=== PATIENT | male | born 1975 | race Caucasian/White ===

== ENCOUNTER 2017-06-18 22:53 | Observation (INO) ==
[2017-06-18] MEDS ORDERED: Ipratropium/Albuterol Neb 3 ML IH ONE (23:02)
[2017-06-18] MEDS ORDERED: methylPREDNISolone 125 MG/2 ML VIAL IM ONE (23:02)
--- NOTE | 2017-06-18 23:30 | Emergency Department Note ---
Disposition Clinical Impression: Asthma with exacerbation Qualifiers: Asthma severity: moderate Asthma persistence: unspecified Qualified Code(s): J45.901 - Unspecified asthma with (acute) exacerbation Disposition: Admitted As Inpatient Condition: Undetermined Time of Disposition: 00:00 SOB HPI - General Chief Complaint: ED Shortness of Breath/Dyspnea Stated Complaint: Asthma Time Seen by Provider: 06/18/17 23:00 Source: patient, family Mode of arrival: private vehicle Limitations: no limitations Nursing Notes Reviewed: Yes Vital Signs Reviewed: Yes - History of Present Illness Pt Subjective Complaint: shortness of breath, cough Onset (ago): week(s) (2) Context: recent illness Severity: moderate Consistency/Duration: constant Improves with: nothing Worsens with: coughing Known history of: asthma Associated symptoms: Reports: cough, wheezing. Denies: chest pain, pain with inspiration, fever, sputum production, orthopnea, lower extremity pain, polyuria , polydipsia, parasthesias, palpitations, hemoptysis, diaphoresis, nausea/ vomiting, syncope, abdominal pain, rash, sense of impending doom, other Treatment prior to arrival: none (was seen by PCP on Tuesday for same. States that he was given an inhaler that had albuterol and a steroid in it. He's not sure of the name of it. He did not receive oral steroids.) Cough present: Yes Cough Description: Voluntary, Involuntary, Dry, Hacking, Strong Cough Frequency: Intermittent Sputum production: No Sputum Amount: None - Related Data Home oxygen amount: none Home Medications Medication Instructions Recorded Confirmed Albuterol Sulfate [Albuterol 2 puff IH Q4H PRN 04/10/17 04/10/17 Inhaler] Atorvastatin [Lipitor] 40 mg PO HS 04/10/17 04/10/17 Baclofen [Lioresal] 10 - 20 mg PO Q6-8H PRN 04/10/17 04/10/17 Escitalopram [Lexapro] 20 mg PO DAILY 04/10/17 04/10/17 Lisinopril [Zestril] 20 mg PO DAILY 04/10/17 04/10/17 Previous Rx's Medication Instructions Recorded Ondansetron ODT [Zofran ODT] 4 mg SL Q8HR PRN #12 tab.rapdis 04/10/17 Oxycodone HCl/Acetaminophen 1 each PO Q6HR PRN #8 tablet 04/10/17 [Percocet 5-325 mg Tablet] Tamsulosin [Flomax] 0.4 mg PO DAILY #3 cap.er.24h 04/10/17 Ondansetron [Zofran] 4 mg PO Q6HR PRN #15 tablet 05/02/17 Oxycodone HCl/Acetaminophen 1 each PO Q6H PRN #10 tablet 05/02/17 [Percocet 5-325 mg Tablet] Tamsulosin [Flomax] 0.4 mg PO DAILY #3 cap.er.24h 05/02/17 Allergies Allergy/AdvReac Type Severity Reaction Status Date / Time hydrocodone [From Lortab] Allergy Hallucinati Verified 06/18/17 22:55 ng All systems ED: reviewed and negative except as stated. Review of Systems: As Per HPI Constitutional: Denies: fever, chills, weakness Eyes: Denies: eye pain, eye discharge, vision change ENT ED: Denies: ear pain, throat pain, congestion, dysphagia Cardiovascular: Reports: dyspnea on exertion. Denies: chest pain, palpitations , orthopnea, edema, syncope Respiratory: Reports: cough, dyspnea, wheezes. Denies: hemoptysis, stridor, sputum production Gastrointestinal: Denies: as per HPI, abdominal pain, nausea, vomiting, diarrhea Genitourinary: Denies: urgency, dysuria, frequency, hematuria Musculoskeletal: Denies: back pain, neck pain, joint swelling, arthralgia, myalgia Integumentary: Denies: rash Neurological: Denies: headache, weakness, numbness, paresthesias, confusion, abnormal gait, vertigo Hematological/Lymphatic: Denies: easy bleeding, easy bruising, lymphadenopathy Past Medical History - Past Medical History Attestation: Yes The following information was validated with the patient. Source: patient Medical history: Reports: asthma, hyperlipidemia, hypertension, kidney stones, liver disease Surgical history: Reports: appendectomy, herniorrhaphy, other Psychiatric history: Reports: other - Social History Smoking Status: Never smoker Smokeless Tobacco Status: No Alcohol use: Reports: none Drug use: Reports: none Physical Exam - General Limitations: no limitations General appearance: alert, in no apparent distress - Head Head exam: atraumatic, normocephalic, normal inspection - Eye Eye exam: Present: normal appearance, PERRL, EOMI. Absent: scleral icterus, conjunctival injection - ENT ENT exam: normal exam, normal oropharynx, mucous membranes moist - Neck Neck exam: Present: normal inspection, full ROM, trachea midline - Chest Chest inspection: Present: normal inspection - Respiratory Respiratory exam: Present: wheezes, accessory muscle use, prolonged expiratory phase. Absent: normal lung sounds bilaterally, respiratory distress, stridor - Expanded Respiratory Exam Location: wheezes: Left, Right, Upper, Lower - Cardiovascular Cardiovascular exam: Present: regular rate, normal rhythm, normal heart sounds - Extremities Exam Extremities exam: Present: normal inspection. Absent: pedal edema - Expanded Lower Extremity Exam Gait: observed and normal - Back Exam Back exam: Present: normal inspection, full ROM - Neurological Exam Neurological exam: Present: alert, oriented X3, CN II-XII intact, normal gait - Psychiatric Psychiatric exam: Present: normal affect, normal mood - Skin Skin exam: Present: warm, dry, intact, normal color Course Course Narrative: Patient presents for evaluation of cough, wheezing and shortness of breath for almost 2 weeks. He denies pain except when he coughs, it irritates his throat. He denies chest pain, peripheral edema, dizziness lightheadedness, vertigo, syncope, hemoptysis, fever, chills, nausea, vomiting, joint pain, rashes, recent exposures or travel. He has no history of coronary artery disease, PE or DVT, CHF or recurrent pneumonia. He does not smoke. He states that his asthma is usually very well controlled with just albuterol as needed, except once a year when the weather changes. He did see his primary care provider, Dr. Hoffmann on Tuesday. He states he was given an inhaler that had a steroid in it. He states that it was albuterol plus some type of steroid. He did not receive oral steroids or antibiotics. He is afebrile, well-appearing and able to speak in complete sentences without stopping to take a deep breath. He has inspiratory and expiratory wheezes in the upper lobes bilaterally. No rhonchi or rales are heard. DuoNeb and x-ray have been ordered along with IM Solu- Medrol. X-ray was read by the radiologist as no acute abnormality. Oxygen saturation is 94% on room air. Given the patient's comorbidities duration of symptoms and that he did not respond to the inhaled steroids, given by his PCP, I am concerned for a possible infectious process. Patient has been seen by Dr. Owens. He does not feel that antibiotics are indicated at this time. Patient's sats have decreased. Chest x-ray does not show pneumonia. Ambulatory vitals are suboptimal. Will admit - Reevaluation(s) Reevaluation #1: Wheezing is better. However, patient sats have decreased instead of increased. He continues to have a harsh cough. At rest, his sats dropped to 88% on room air. While ambulating he was up to only 93% and was tachycardic at 106. Time: 01:31 Vital Signs Temperature 97.8 F 06/18/17 22:55 Pulse Rate 86 06/18/17 22:55 Respiratory Rate 18 06/18/17 22:55 Blood Pressure 139/90 06/18/17 22:55 O2 Sat by Pulse Oximetry 94 06/18/17 22:55 Temperature 97.8 F 06/18/17 22:55 Pulse Rate 97 06/19/17 00:08 Respiratory Rate 18 06/19/17 00:39 Blood Pressure 139/90 06/18/17 22:55 O2 Sat by Pulse Oximetry 94 06/19/17 00:39 Oxygen Delivery Oxygen Delivery Room Air Shortness of Breath/Dyspnea - Medical Records Medical records reviewed: Yes I reviewed the patient's medical records. - Radiology Data Radiology results reviewed: Yes I reviewed the patient's radiology results. Chest X-Ray 06/18/17 23:03 IMPRESSION: 1. No acute cardiopulmonary disease. D/ / Marc Tellez MD / Marc Tellez MD Interpreting Provider: Marc Tellez MD - EKG Data EKG attestation: Yes I reviewed and interpreted this EKG. EKG shows normal: Reports: sinus rhythm Rate: Reports: normal Rhythm: Reports: NSR [place]/QRS: Reports: normal When compared to previous EKG there are: changes noted (T waves are now flat in lead three. Previously they were inverted.) Interpretation: Reports: normal EKG
[2017-06-19] MEDS ORDERED: Acetaminophen w/Codeine 120-12 mg Soln 5 ML UDC PO ONE (00:15)
[2017-06-19] MEDS ORDERED: Ipratropium/Albuterol Neb 3 ML IH ONE (00:15)
--- NOTE | 2017-06-19 01:32 | Emergency Department Note ---
Disposition Clinical Impression: Asthma with exacerbation Qualifiers: Asthma severity: moderate Asthma persistence: unspecified Qualified Code(s): J45.901 - Unspecified asthma with (acute) exacerbation Disposition: Admitted As Inpatient Condition: Undetermined Referrals: Kory De Oliveira DO [Primary Care Provider] - General Adult HPI - General Chief complaint: ED Shortness of Breath/Dyspnea Stated complaint: Asthma Time Seen by Provider: 06/18/17 23:00 Source: patient, family Mode of arrival: private vehicle Limitations: no limitations - History of Present Illness Pain Scale: 0 - Related Data Home Medications Medication Instructions Recorded Confirmed Albuterol Sulfate [Albuterol 2 puff IH Q4H PRN 04/10/17 04/10/17 Inhaler] Atorvastatin [Lipitor] 40 mg PO HS 04/10/17 04/10/17 Baclofen [Lioresal] 10 - 20 mg PO Q6-8H PRN 04/10/17 04/10/17 Escitalopram [Lexapro] 20 mg PO DAILY 04/10/17 04/10/17 Lisinopril [Zestril] 20 mg PO DAILY 04/10/17 04/10/17 Previous Rx's Medication Instructions Recorded Ondansetron ODT [Zofran ODT] 4 mg SL Q8HR PRN #12 tab.rapdis 04/10/17 Oxycodone HCl/Acetaminophen 1 each PO Q6HR PRN #8 tablet 04/10/17 [Percocet 5-325 mg Tablet] Tamsulosin [Flomax] 0.4 mg PO DAILY #3 cap.er.24h 04/10/17 Ondansetron [Zofran] 4 mg PO Q6HR PRN #15 tablet 05/02/17 Oxycodone HCl/Acetaminophen 1 each PO Q6H PRN #10 tablet 05/02/17 [Percocet 5-325 mg Tablet] Tamsulosin [Flomax] 0.4 mg PO DAILY #3 cap.er.24h 05/02/17 Allergies Allergy/AdvReac Type Severity Reaction Status Date / Time hydrocodone [From Lortab] Allergy Hallucinati Verified 06/18/17 22:55 ng Constitutional: Denies: fever, chills, weakness Eyes: Denies: eye pain, eye discharge, vision change ENT ED: Denies: ear pain, throat pain, congestion, dysphagia Cardiovascular: Reports: dyspnea on exertion. Denies: chest pain, palpitations , orthopnea, edema, syncope Respiratory: Reports: cough, dyspnea, wheezes. Denies: hemoptysis, stridor, sputum production Gastrointestinal: Denies: as per HPI, abdominal pain, nausea, vomiting, diarrhea Genitourinary: Denies: urgency, dysuria, frequency, hematuria Musculoskeletal: Denies: back pain, neck pain, joint swelling, arthralgia, myalgia Integumentary: Denies: rash Neurological: Denies: headache, weakness, numbness, paresthesias, confusion, abnormal gait, vertigo Hematological/Lymphatic: Denies: easy bleeding, easy bruising, lymphadenopathy Past Medical History - Past Medical History Medical history: Reports: asthma, hyperlipidemia, hypertension, kidney stones, liver disease Surgical history: Reports: appendectomy, herniorrhaphy, other Psychiatric history: Reports: other - Social History Smoking Status: Never smoker Smokeless Tobacco Status: No Alcohol use: Reports: none Drug use: Reports: none Physical Exam - General Limitations: no limitations General appearance: alert, in no apparent distress Course Vital Signs Temperature 97.8 F 06/18/17 22:55 Pulse Rate 86 06/18/17 22:55 Respiratory Rate 18 06/18/17 22:55 Blood Pressure 139/90 06/18/17 22:55 O2 Sat by Pulse Oximetry 94 06/18/17 22:55 Temperature 97.8 F 06/18/17 22:55 Pulse Rate 97 06/19/17 00:08 Respiratory Rate 18 06/19/17 00:39 Blood Pressure 139/90 06/18/17 22:55 O2 Sat by Pulse Oximetry 94 06/19/17 00:39 Oxygen Delivery Oxygen Delivery Room Air Attestation Statement - Attestation Attestation: For this encounter, I have reviewed the SENIOR GAME ADVISOR or PA documentation, treatment plan, and medical decision making; and I have had face to face time with this patient. [id number] time provided Patient to be admitted by the mid-level provider for wheezing and dyspnea. He does have ambulatory hypoxia. Appears in no acute distress on my exam
[2017-06-19 02:29] LABS: Basophils % 0.4 %; Eosinophils # 0.6 K/mcL (0.0-0.6); Hematocrit 43.4 % (37.5-50.1); Hemoglobin 15.2 g/dL (12.9-16.9); Immature Granulocytes % 0.4 % (0-4); Lymphocytes # 1.2 K/mcL (0.6-4.6); Lymphocytes % 14.1 %; Mean Corpuscular Hemoglobin 29.1 pg (28.0-33.3); Mean Corpuscular Volume 83.1 fL (83.0-100.0); Mean Platelet Volume 9.3 fL (9.4-12.4); Monocytes # 0.2 K/mcL (0.0-1.3); Monocytes % 2.4 %; Neutrophils # 6.2 K/mcL (1.6-8.9); Platelet Count 252 K/mcL (140-400); Red Blood Count 5.22 M/mcL (4.19-5.50); Red Cell Distribution Width 13.2 % (11.5-14.5); Segmented Neutrophils % 75.7 %
[2017-06-19 02:41] LABS: BUN/Creatinine Ratio 14 (6-26); Blood Urea Nitrogen 15 mg/dL (8-26); Carbon Dioxide 22 mEq/L (19-29); Chloride 107 mEq/L (98-109); Glucose 144 mg/dL (70-99); Magnesium 2.4 mg/dL (1.6-2.6); Osmolality,Calculated 291 (280-300); Potassium 3.1 mEq/L (3.5-4.5); Sodium 139 mEq/L (136-145); eGFR For African Americans > 60 (> 60); eGFR For Non-African Americans > 60 (> 60)
--- NOTE | 2017-06-19 02:44 | Internal Med History&Physical ---
Date of Encounter: 06/19/17 Time of Encounter: 02:42 Assessment and Plan (1) Asthma with exacerbation Current visit: Yes Status: Acute Mild exacerbation. Patient is comfortable at rest. Speaking in full sentences. No respiratory distress or accessory muscle use. hypoxia to early 90s. Will give the patient steroids Q4 our nebulizer treatment. No pneumonia on chest x-ray. No priorintubations. Observation admission Qualifiers: Asthma severity: moderate Asthma persistence: unspecified Qualified Code( s): J45.901 - Unspecified asthma with (acute) exacerbation Internal Medicine - H&P: HPI Chief complaint: sob History of present illness: Mr. Story is a 42 year old male with a history of asthma presents emergency room with a little shortness of breath. Patient mentioned that for the past 2 weeks he has been noticing increased shortness of breath compared to baseline and chest wheezing. He has been noticing that symptoms would worsen only at nighttime. However the past couple of days patient has been using his inhaler more frequently than usual. He has seen his primary care physician on Tuesday 3 days ago and was given an albuterol inhaler and albuterol solution was refilled. He has not received any steroids. Patient speaking in full sentences during my interview. He denies any fevers or chills. no sputum Production. No chest pain. No prior history of DVT or pulmonary embolism. Past Med Surg Social Fam HX - Past Medical History Medical history: asthma, hyperlipidemia, hypertension, kidney stones, liver disease Psychiatric history: other - Past Surgical History Surgical History: appendectomy, herniorrhaphy, other - Social History Smoking Status: Never smoker Smokeless Tobacco Status: No Alcohol use: none Drug use: none Internal Medicine - H&P: Meds Albuterol Sulfate [Albuterol Inhaler] 2 puff IH Q4H PRN 04/10/17 [History] Atorvastatin [Lipitor] 40 mg PO HS 04/10/17 [History] Baclofen [Lioresal] 10 - 20 mg PO Q6-8H PRN 04/10/17 [History] Escitalopram [Lexapro] 20 mg PO DAILY 04/10/17 [History] Lisinopril [Zestril] 20 mg PO DAILY 04/10/17 [History] Ondansetron ODT [Zofran ODT] 4 mg SL Q8HR PRN #12 tab.rapdis 09/03/17 [Rx] Oxycodone HCl/Acetaminophen [Percocet 5-325 mg Tablet] 1 each PO Q6HR PRN #8 tablet 04/10/17 [Rx] Tamsulosin [Flomax] 0.4 mg PO DAILY #3 cap.er.24h 04/10/17 [Rx] Ondansetron [Zofran] 4 mg PO Q6HR PRN #15 tablet 05/02/17 [Rx] Oxycodone HCl/Acetaminophen [Percocet 5-325 mg Tablet] 1 each PO Q6H PRN #10 tablet 05/02/17 [Rx] Tamsulosin [Flomax] 0.4 mg PO DAILY #3 cap.er.24h 05/02/17 [Rx] 3 Allergy/AdvReac Type Severity Reaction Status Date / Time hydrocodone [From Lortab] Allergy Hallucinati Verified 06/18/17 22:55 ng All Systems PM: A 10-system review of systems was performed and is negative for pertinent findings except as documented above in the HPI. Review of systems: 10 point review of systems is negative except for HPI - Constitutional Vitals: Temp Pulse Resp BP Pulse Ox 97.8 F 104 14 140/75 93 06/18/17 22:55 06/19/17 02:05 06/19/17 02:40 06/19/17 02:40 06/19/17 02:05 Exam: Gen.: patient is alert oriented times 3 cardiac: normal S1 S2 no additional sounds or murmurs chest: diminished air entry. expiratory wheeze abdomen soft nontender nondistended normal bowel sounds lower extremity no swelling. Neuro: no new focal deficits Internal Med - H&P Results - Labs CBC & Chem 7: 06/19/17 02:22 Labs: Short CBC 06/19/17 Range/Units 02:22 WBC 8.2 (4.3-11.1) K/mcL Hgb 15.2 (12.9-16.9) g/dL Hct 43.4 (37.5-50.1) % Plt Count 252 (140-400) K/mcL Neutrophils # 6.2 (1.6-8.9) K/mcL
[2017-06-19] MEDS: Ipratropium/Albuterol Neb 3 ML IH SCH ×4 (03:41→15:19)
[2017-06-19] MEDS: *HR* Heparin 5,000 UNIT/ML VIAL SQ SCH ×3 (05:46→21:27)
[2017-06-19] MEDS: MethylPREDNISolone 40 MG/ML VIAL IVP SCH ×3 (06:21→17:01)
[2017-06-19] MEDS: Famotidine 20 MG TABLET PO SCH ×2 (07:44→21:28)
[2017-06-19] MEDS ORDERED: Albuterol 2.5 MG/3 ML NEBULIZER IH PRN (07:50)
[2017-06-19] MEDS ORDERED: *HR* Labetalol 20 MG/4 ML SYRINGE IVP ONE ×2 (13:20→16:27)
[2017-06-19] MEDS ORDERED: hydrOXYzine pamoate 25 MG CAPSULE PO ONE (14:33)
--- NOTE | 2017-06-19 14:43 | Internal Med Progress Note ---
Date of Encounter: 06/19/17 Time of Encounter: 08:30 - Assessment and plan (1) Asthma with exacerbation Current Visit: Yes Status: Acute Assessment and plan: Pt with exacerbatioin of asthma, has been requiring more frequent use of his inhalers and has been seen by PCP during the week and placed on new inhaler. Pt reports history of same in the fall for the last few years. Lungs are diminished, but clear in the posterior bases. Faint expiratory wheezing heard in anterior lung enriquez. Pt's sats have been low, in the low 90s in the ER. Will continue to monitor Continue nebulizer treatments Continue IV steroids Continue telemetry 02 as needed to maintain sats > 92% Qualifiers: Asthma severity: moderate Asthma persistence: unspecified Qualified Code( s): J45.901 - Unspecified asthma with (acute) exacerbation (2) Tachycardia Current Visit: Yes Status: Acute Assessment and plan: Pt with tachycardia this afternoon. Onset after nebulizer treatment. Pt was given BB IV. Will continue to monitor vitals frequently. Obtain EKG. (3) DVT prophylaxis Current Visit: Yes Status: Acute Assessment and plan: Heparin SQ - Time Spent With Patient less than 15 minutes - Subjective Interval history: Patient was seen and assessed at bedside at 8:30 AM. Female visitor at bedside. The patient presented to the emergency room for evaluation of cough wheezing, shortness of breath increasing over last 2 weeks. He denies any chest pain, dizziness, lightheadedness, abdominal pain, headache, fever, chills , nausea, vomiting. Patient reports that every year at this time, he has exacerbation of his asthma. We discussed that perhaps he could speak with primary care provider about ramping up his nebulizers and/or taking steroids to get through this time a year without hospitalization or complications. - Constitutional Vitals: Temp Pulse Resp BP Pulse Ox 97.8 F 117 16 144/74 94 06/19/17 11:30 06/19/17 12:35 06/19/17 11:30 06/19/17 11:30 06/19/17 12:35 General appearance: Present: cooperative, A&O X 3, pleasant, answers questions appropriately - Head Head exam: Present: atraumatic, normal inspection, normocephalic - Eye Eye exam: Present: normal appearance, conjuntiva pink, sclera anicteric - Neck Neck exam general surgery: Present: normal inspection, supple, trachea midline. Absent: lymphadenopathy, tenderness - Respiratory Respiratory exam: Present: decreased breath sounds, CTAB, wheezes. Absent: accessory muscle use, chest wall tenderness, rales, respiratory distress, rhonchi - Cardiovascular Cardiovascular exam: Present: RRR, +S1, +S2. Absent: diastolic murmur, gallop, rubs, systolic murmur - GI/Abdominal GI/Abdominal exam: Present: normal bowel sounds, soft. Absent: distended, hepatomegaly, tenderness - Extremities Exam Extremities exam: Present: normal capillary refill, normal inspection, warm, radial pulses palpable and symmetrical. Absent: calf tenderness, cyanotic, pedal edema, tenderness - Neurological Exam Neurological exam: Present: alert, oriented X3, no focal deficits. Absent: facial droop, speech deficit - Skin Skin exam: Present: dry, intact, normal color, warm. Absent: rash Internal Medicine: Result - Labs CBC & Chem 7: 06/19/17 02:22 06/19/17 02:22 Labs: Short CBC 06/19/17 Range/Units 02:22 WBC 8.2 (4.3-11.1) K/mcL Hgb 15.2 (12.9-16.9) g/dL Hct 43.4 (37.5-50.1) % Plt Count 252 (140-400) K/mcL Neutrophils # 6.2 (1.6-8.9) K/mcL BMP 06/19/17 02:22 Sodium 139 Potassium 3.1 L Chloride 107 Carbon Dioxide 22 BUN 15 Creatinine 1.10 Glucose 144 H Calcium 9.0 Consult Discharge Plan - Plan Referrals: Kory De Oliveira DO [Primary Care Provider] -
[2017-06-19 15:31] LABS: Amphetamine Screen,Urine Negative ng/mL (Cutoff=1000); Barbiturate Screen,Urine Negative ng/mL (Cutoff=200); Benzodiazepines Screen,Urine Negative ng/mL (Cutoff=200); Cannabinoid Screen,Urine Negative ng/mL (Cutoff = 50); Cocaine Screen,Urine Negative ng/mL (Cutoff= 300); Opiate Screen,Urine Positive ng/mL (Cutoff=300); Phencyclidine Screen,Urine Negative ng/mL (Cutoff=25)
[2017-06-19] MEDS ORDERED: 0.9 % Sodium Chloride 1,000 ML IVC SCH (17:15)
--- NOTE | 2017-06-19 18:10 | Electrocardiograph Report ---
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
[2017-06-19] MEDS: Levalbuterol Neb 1.25 MG/3 ML IH SCH (20:02)
[2017-06-20] MEDS: Levalbuterol Neb 1.25 MG/3 ML IH SCH ×5 (00:03→16:15)
[2017-06-20 05:08] LABS: Basophils % 0.1 %; Hematocrit 42.8 % (37.5-50.1); Hemoglobin 14.4 g/dL (12.9-16.9); Immature Granulocytes % 0.5 % (0-4); Lymphocytes # 0.9 K/mcL (0.6-4.6); Mean Corpuscular HGB Conc 33.6 g/dL (31.6-35.5); Mean Corpuscular Hemoglobin 28.3 pg (28.0-33.3); Mean Corpuscular Volume 84.3 fL (83.0-100.0); Mean Platelet Volume 9.7 fL (9.4-12.4); Monocytes % 6.8 %; Neutrophils # 12.6 K/mcL (1.6-8.9); Platelet Count 271 K/mcL (140-400); Red Blood Count 5.08 M/mcL (4.19-5.50); Red Cell Distribution Width 13.2 % (11.5-14.5); Segmented Neutrophils % 86.6 %
[2017-06-20 05:39] LABS: BUN/Creatinine Ratio 20 (6-26); Blood Urea Nitrogen 18 mg/dL (8-26); Calcium 8.8 mg/dL (8.6-10.8); Carbon Dioxide 21 mEq/L (19-29); Chloride 110 mEq/L (98-109); Glucose 139 mg/dL (70-99); Osmolality,Calculated 294 (280-300); Potassium 4.1 mEq/L (3.5-4.5); Sodium 140 mEq/L (136-145); eGFR For African Americans > 60 (> 60); eGFR For Non-African Americans > 60 (> 60)
[2017-06-20] MEDS: *HR* Heparin 5,000 UNIT/ML VIAL SQ SCH ×2 (05:53→14:00)
[2017-06-20] MEDS: MethylPREDNISolone 40 MG/ML VIAL IVP SCH (06:25)
[2017-06-20] MEDS: Famotidine 20 MG TABLET PO SCH (08:26)
[2017-06-20] MEDS ORDERED: Lisinopril 20 MG TABLET PO SCH (09:00)
[2017-06-20 15:06] VITALS: BP 127/73
--- NOTE | 2017-06-20 15:07 | Electrocardiograph Report ---
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
--- NOTE | 2017-06-20 15:35 | Discharge Summary ---
Date of Encounter: 06/20/17 Time of Encounter: 09:30 - Discharge Diagnosis (1) Asthma with exacerbation Priority: Primary Status: Acute Comments: Pt with exacerbatioin of asthma, has been requiring more frequent use of his inhalers and has been seen by PCP during the week and placed on new inhaler. 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 Pt reports history of same in the fall for the last few years. Lungs are diminished, but clear in the posterior bases. Faint expiratory wheezing heard in anterior lung enriquez. Pt's sats were low, in the low 90s in the ER. He is back on room air and sats were about 94-95%. Pt will continue home medications and will get a steroid taper. Qualifiers: Asthma severity: moderate Asthma persistence: unspecified Qualified Code( s): J45.901 - Unspecified asthma with (acute) exacerbation (2) Tachycardia Priority: Secondary Status: Acute Comments: Pt with tachycardia, acute, onset yesterday. Pt will be sent home on low dose of BB since it is controlling pulse well without bradycardia, Blood pressure has been well controlled. Pt will need to follow up with PCP for evaluation and monitoring. (3) DVT prophylaxis Priority: Secondary Status: Acute Comments: Heparin SQ - Discharge Medications Prescriptions: Ipratropium/Albuterol Neb [Duoneb] 3 ml IH Q6HR PRN #60 vial.neb PRN Reason: wheezing/shortness of breath GuaiFENesin ER [Mucinex] 600 mg PO BID #60 tbbp.12hr Metoprolol [Lopressor] 12.5 mg PO BID #60 tablet predniSONE [PredniSONE] 10 mg PO DAILY #41 tablet Home Medications: Albuterol Sulfate [Albuterol Inhaler] 2 puff IH Q4H PRN 04/10/17 [History] Atorvastatin [Lipitor] 80 mg PO HS 04/10/17 [History] Escitalopram [Lexapro] 20 mg PO DAILY 04/10/17 [History] Lisinopril [Zestril] 20 mg PO DAILY 04/10/17 [History] Budesonide/Formoterol 80/4.5 [Symbicort 80/4.5] 2 puff IH BID 06/19/17 [History ] Ipratropium/Albuterol Neb [Duoneb] 3 ml IH Q6HR 11/12/17 [History] Meloxicam [Mobic] 7.5 mg PO DAILY 06/19/17 [History] GuaiFENesin ER [Mucinex] 600 mg PO BID #60 tbbp.12hr 06/20/17 [Rx] Ipratropium/Albuterol Neb [Duoneb] 3 ml IH Q6HR PRN #60 vial.neb 06/20/17 [Rx] Metoprolol [Lopressor] 12.5 mg PO BID #60 tablet 06/20/17 [Rx] predniSONE [PredniSONE] 10 mg PO DAILY #41 tablet 06/20/17 [Rx] Allergies/Adverse Reactions: 3 Allergy/AdvReac Type Severity Reaction Status Date / Time hydrocodone [From Lortab] Allergy Hallucinati Verified 06/18/17 22:55 ng Procedures/tests Complete & Pending: Procedures Performed prior 72 hours Category Date Time Status ECG 12 lead ECG [ECG] Routine Y 06/19/17 16:25 Completed Date of admission: 06/19/17 02:19 Primary care physician: Kory De Oliveira DO Discharging clinician: Madeline Solorzano Anticipated date of discharge: 06/20/17 - Patient Status Disposition: Home, Self-Care Condition: Good Functional capacity at discharge: independent ambulation Overall status at discharge: patient is back to baseline - Discharge Instructions Follow Up With: Kory De Oliveira DO [Primary Care Provider] - Additional Instructions: Follow up with PCP in the next 7-10 days for a follow up visit. Return to the ER as needed for any other problems or concerns. Take your medications as directed. Return to work on Tuesday as we discussed. REsume your normal activities as tolerated, try to rest. - Diet and Activity Activity: increase activity as tolerated Diet: advance to your usual diet Interval History: Please see assessment and plan for hospital course. Hospital course: Mr. Story is a 42 year old male - Time Spent with Patient Total time spent providing and/or coordinating discharge services: Less than 30 minutes - Constitutional Vitals: Temp Pulse Resp BP Pulse Ox 97.9 F 87 18 127/73 96 06/20/17 15:06 06/20/17 15:06 06/20/17 15:06 06/20/17 15:06/20/17 15:06 General appearance: Present: cooperative, A&O X 3, pleasant, no acute distress, answers questions appropriately - Head Head exam: Present: atraumatic, normal inspection, normocephalic - Eye Eye exam: Present: normal appearance, conjuntiva pink, sclera anicteric - Neck Neck exam general surgery: Present: supple, trachea midline. Absent: lymphadenopathy - Respiratory Respiratory exam: Present: CTAB. Absent: accessory muscle use, rales, rhonchi, wheezes - Cardiovascular Cardiovascular exam: Present: RRR, +S1, +S2. Absent: bradycardia, diastolic murmur, gallop, rubs, systolic murmur, tachycardia - GI/Abdominal GI/Abdominal exam: Present: soft, no peritoneal signs. Absent: distended, hepatomegaly, tenderness - Extremities Exam Extremities exam: Present: normal capillary refill, warm, radial pulses palpable and symmetrical. Absent: calf tenderness, cyanotic, pedal edema, tenderness - Neurological Exam Neurological exam: Present: alert, oriented X3, no focal deficits. Absent: facial droop, speech deficit - Skin Skin exam: Present: dry, intact, normal color, warm. Absent: rash
== END 2017-06-20 18:20 | disposition home or self-care (01) ==
LOC: EMEROO 22:53 → 3BNU 22:53
PROVIDERS: ADMIT Hospitalist; ATTEND Registered Nurse

== ENCOUNTER 2019-04-06 21:42 | Observation (INO) ==
[2019-04-06 22:00] LABS: Bilirubin,Urine Negative (Negative); Blood,Urine Large (Negative); Clarity,Urine Clear (Clear); Color,Urine Yellow (Yellow); Glucose,Urine (UA) Normal (Normal); Ketones,Urine Trace mg/dL (Negative); Leukocyte Esterase,Urine Negative (Negative); Nitrite,Urine Negative (Negative); Protein,Urine Trace mg/dL (Neg-Trace); Specific Gravity,Urine 1.025 (1.010-1.025); Urobilinogen,Urine Normal (Normal)
[2019-04-06 22:02] LABS: Bacteria,Urine None Seen per hpf (None-Few); Hyaline Casts,Urine None Seen per lpf (None-Few); Squamous Epithelial Cell,Urine Moderate per lpf (None-Few); WBC,Urine 0-3 per hpf (0-3)
--- NOTE | 2019-04-06 22:07 | Emergency Department Note ---
Disposition Clinical Impression: GABRIELLE (acute kidney injury), Right ureteral stone Disposition: Admitted As Inpatient Condition: Fair Referrals: Kory De Oliveira DO [Primary Care Provider] - Forms: ED Satisfaction Letter, Work/School Release Time of Disposition: 00:20 Abdominal Pain HPI - General Chief Complaint: ED Abdominal Pain Stated Complaint: R Flank Pain Time Seen by Provider: 04/06/19 22:05 Source: patient Mode of arrival: ambulatory Limitations: no limitations Nursing Notes Reviewed: Yes Vital Signs Reviewed: Yes - History of Present Illness HPI Narrative: Patient is a 43-year-old male presenting with right flank pain. Patient with known history of nephrolithiasis requiring surgical intervention and stenting in the past. Patient is followed by urology, Dr. Castaneda. Patient had abrupt onset of right flank pain 1 hour prior to arrival with radiation down into the right groin and testicles. Patient states that he has been having no urinary symptoms, fevers or chills. Pain has been constant rated 9 out of 10. He has had associated nausea without vomiting. This feels very similar to his kidney stones in the past. States he has required surgical intervention for 4 out of the last 5 kidney stones that he has had. He did have a CT scan performed in early March showing a 5 mm stone to the right UPJ. This was nonobstructing at that time. It was noted by his urologist at that time, noted that it could start to move and cause discomfort. Pain Scale: 9 - Related Data Home Medications Medication Instructions Recorded Confirmed Albuterol Sulfate [Proventil 2 puff IH Q4H PRN 04/10/17 08/22/18 Inhaler] Atorvastatin [Lipitor] 80 mg PO HS 04/10/17 08/22/18 Ipratropium/Albuterol Neb [Duoneb] 3 ml IH Q6HR PRN 06/19/17 08/22/18 Ibuprofen [Ibu] 1 tab PO TID PRN 08/22/18 08/22/18 Naproxen [Naprosyn] 1 tab PO Q12H PRN 08/22/18 08/22/18 Sertraline [Zoloft] 1 tab PO DAILY 08/22/18 08/22/18 Losartan/HCTZ 1 tab PO DAILY 04/06/19 04/06/19 Wellbutrin 1 tab PO DAILY 04/06/19 04/06/19 amLODIPine 1 tab PO DAILY 04/06/19 04/06/19 Allergies Allergy/AdvReac Type Severity Reaction Status Date / Time hydrocodone [From Lortab] Allergy Hallucinati Verified 04/06/19 22:04 ng All systems ED: reviewed and negative except as stated. Review of Systems: As Per HPI Constitutional: Denies: fever, chills ENT ED: Denies: congestion Cardiovascular: Denies: chest pain, palpitations Respiratory: Denies: cough, dyspnea Gastrointestinal: Reports: abdominal pain, nausea. Denies: vomiting, diarrhea, hematemesis, melena, hematochezia Genitourinary: Denies: urgency, dysuria, frequency, hematuria Musculoskeletal: Reports: back pain Integumentary: Denies: rash, abrasion Neurological: Denies: headache, weakness, numbness, confusion Endocrine: Denies: fatigue Abdominal Pain PMH - Past Medical History Medical history: Reports: asthma, hyperlipidemia, hypertension, kidney stones Male Surgical History: Reports: appendectomy, herniorrhaphy, orthopedic, other Psychiatric history: Reports: no psych history - Social History Smoking status: Never smoker Alcohol use: Reports: none Drug use: Reports: none Physical Exam General: Conversant. Patient appears uncomfortable on the bed. Follow commands. Appears stated age. Neck: No JVD. Trachea midline. Neck supple. Eyes: PERRL. No scleral icterus. HENT: Normocephalic and atraumatic. Moist mucus membranes. Cardiovascular: Regular rate and rhythm. Normal S1 and S2. No murmurs appreciated. Normal capillary refill. Extremities well perfused with 2+ distal pulses bilaterally. No edema. Pulmonary: Normal and equal breath sounds bilaterally, anteriorly and posteriorly. No wheezes, rales, or rhonchi. Not in respiratory distress. Speaks in full sentences. Abdomen: Soft, nondistended, No bruits or masses. No guarding or rebound. Patient was in his palpation throughout the right CVA region extending down into the right lateral abdomen, testicular exam is generalized tenderness throughout the right testicle without posterior tenderness, no testicular swelling, erythema or crepitus. Neuro: Alert and oriented x3. No slurred speech. No focal deficits noted. Skin: No rashes noted on visualized skin. Musculoskeletal: No bony abnormalities visualized. Moves all extremities. Psych: Normal mood. Pleasant. Makes appropriate eye contact. - General Limitations: no limitations General appearance: alert Course Vital Signs Temperature 97.6 F 04/06/19 21:43 Pulse Rate 92 04/06/19 21:43 Respiratory Rate 22 04/06/19 21:43 Blood Pressure 156/99 04/06/19 21:43 O2 Sat by Pulse Oximetry 98 04/06/19 21:43 Temperature 97.6 F 04/06/19 21:59 Pulse Rate 85 04/07/19 00:04 Respiratory Rate 16 04/07/19 00:04 Blood Pressure 138/86 04/07/19 00:04 O2 Sat by Pulse Oximetry 97 04/07/19 00:04 Oxygen Delivery Oxygen Delivery Room Air Abdominal Pain - MDM Narrative Medical decision making narrative: Patient is a 43-year-old male who is presenting with right flank pain. Patient with known history of nephrolithiasis with last CT the abdomen and pelvis performed in early March showing a 5 mm nonobstructing stone at the UPJ. Patient does appear uncomfortable on examination otherwise vital signs within normal limits. Patient is afebrile. X-ray work was performed and reviewed including CBC, BMP and urinalysis. CBC shows no leukocytosis. BMP does show s light acute kidney injury with a serum creatinine 1.34 with baseline of normal. Urinalysis shows hematuria without sign of infection. CT of the abdomen and pelvis was performed which does show 5 mm obstructing stone at the mid ureter with moderate hydronephrosis. Patient was given a liter of fluids, fentanyl secondary to hydrocodone allergy, Toradol and Zofran. On reevaluation, patient states that his pain had decreased however at this point in time is coming back. Patient continues to feel somewhat uncomfortable. I did have a discussion with the patient regarding disposition, shared decision making with the patient as well as his in the room regarding admission versus discharge with outpatient follow-up. As the patient has had multiple kidney stones in the past requiring surgical intervention and stenting, patient would prefer to be admitted further pain control as well as inpatient treatment. I do believe that this is appropriate given patient's pain as well as slight elevation of serum creatinine. Patient will need further pain control here in the hospital as well as urological consult. - Medical Records Medical records reviewed: Yes I reviewed the patient's medical records. - Lab Data Lab results reviewed: Yes I reviewed the patient's lab results. Result diagrams: 04/06/19 21:57 04/06/19 21:57 Lab Results 04/06/19 04/06/19 04/06/19 Range/Units 21:50 21:57 21:57 WBC 10.7 (4.3-11.1) K/mcL RBC 5.53 H (4.19-5.50) M/mcL Hgb 15.3 (12.9-16.9) g/dL Hct 44.9 (37.5-50.1) % MCV 81.2 L (83.0-100.0) fL MCH 27.7 L (28.0-33.3) pg MCHC 34.1 (31.6-35.5) g/dL RDW 12.6 (11.5-14.5) % Plt Count 317 (140-400) K/mcL MPV 9.3 L (9.4-12.4) fL Immature Gran % 0.4 (0-4) % Seg Neutrophils % 76.4 % Lymphocytes % 13.8 % Monocytes % 8.1 % Eosinophils % 1.0 % Basophils % 0.3 % Neutrophils # 8.2 (1.6-8.9) K/mcL Lymphocytes # 1.5 (0.6-4.6) K/mcL Monocytes # 0.9 (0.0-1.3) K/mcL Eosinophils # 0.1 (0.0-0.6) K/mcL Basophils # 0.0 (0.0-0.2) K/mcL Sodium 139 (136-145) mEq/L Potassium 3.3 L (3.5-5.1) mEq/L Chloride 102 (98-107) mEq/L Carbon Dioxide 22 L (23-29) mEq/L BUN 24 H (6-20) mg/dL Creatinine 1.43 H (0.70-1.30) mg/dL Est GFR ( Amer) > 60 (> 60) Est GFR (Non-Af Amer) 55 L (> 60) BUN/Creatinine Ratio 17 (6-26) Glucose 142 H (70-105) mg/dL Calculated Osmolality 294 (280-300) Calcium 9.7 (8.6-10.3) mg/dL Urine Color Yellow (Yellow) Urine Clarity Clear (Clear) Urine pH 5.0 (5.0-8.0) pH Units Ur Specific [place] 1.025 (1.010-1.025) Urine Protein Trace (Neg-Trace) mg/dL Urine Glucose (UA) Normal (Normal) mg/dL Urine Ketones Trace H (Negative) mg/dL Urine Blood Large H (Negative) Urine Nitrite Negative (Negative) Urine Bilirubin Negative (Negative) Urine Urobilinogen Normal (Normal) mg/dL Ur Leukocyte Esterase Negative (Negative) Urine Microscopic RBC 3-5 H (0-3) per hpf Urine Microscopic WBC 0-3 (0-3) per hpf Ur Squamous Epith Cells Moderate H (None-Few) per lpf Urine Bacteria None Seen (None-Few) per hpf Hyaline Casts None Seen (None-Few) per lpf Ur Culture Indicated? NO (NO) - Radiology Data Radiology results reviewed: Yes I reviewed the patient's radiology results. Abdomen/Pelvis CT 04/06/19 22:46 IMPRESSION: Obstructing proximal right ureteral calculus measuring 5 mm with hydroureteronephrosis. D/ / Alexandro Estrada / Alexandro Estrada Interpreting Provider: Alexandro Estrada
[2019-04-06 22:10] LABS: Basophils % 0.3 %; Eosinophils # 0.1 K/mcL (0.0-0.6); Hematocrit 44.9 % (37.5-50.1); Hemoglobin 15.3 g/dL (12.9-16.9); Immature Granulocytes % 0.4 % (0-4); Lymphocytes # 1.5 K/mcL (0.6-4.6); Lymphocytes % 13.8 %; Mean Corpuscular HGB Conc 34.1 g/dL (31.6-35.5); Mean Corpuscular Hemoglobin 27.7 pg (28.0-33.3); Mean Corpuscular Volume 81.2 fL (83.0-100.0); Mean Platelet Volume 9.3 fL (9.4-12.4); Monocytes # 0.9 K/mcL (0.0-1.3); Monocytes % 8.1 %; Neutrophils # 8.2 K/mcL (1.6-8.9); Platelet Count 317 K/mcL (140-400); Red Blood Count 5.53 M/mcL (4.19-5.50); Red Cell Distribution Width 12.6 % (11.5-14.5); Segmented Neutrophils % 76.4 %; White Blood Count 10.7 K/mcL (4.3-11.1)
[2019-04-06] MEDS ORDERED: Ketorolac 15 MG/ML VIAL IM ONE (22:28)
[2019-04-06 22:29] LABS: BUN/Creatinine Ratio 17 (6-26); Blood Urea Nitrogen 24 mg/dL (6-20); Calcium 9.7 mg/dL (8.6-10.3); Carbon Dioxide 22 mEq/L (23-29); Chloride 102 mEq/L (98-107); Glucose 142 mg/dL (70-105); Osmolality,Calculated 294 (280-300); Potassium 3.3 mEq/L (3.5-5.1); Sodium 139 mEq/L (136-145); eGFR For African Americans > 60 (> 60); eGFR For Non-African Americans 55 (> 60)
[2019-04-06] MEDS ORDERED: Ondansetron 4 MG/2 ML VIAL IVP ONE (22:29)
[2019-04-06] MEDS ORDERED: *HR* FentaNYL (PF) 100 MCG/2 ML VIAL IVP ONE (22:31)
[2019-04-06] MEDS ORDERED: 0.9 % Sodium Chloride 1,000 ML IVC ONE (22:32)
[2019-04-06] MEDS ORDERED: Ketorolac 15 MG/ML VIAL IVP ONE (22:42)
--- NOTE | 2019-04-06 23:14 | Emergency Department Note ---
Disposition Clinical Impression: GABRIELLE (acute kidney injury), Right ureteral stone Disposition: Admitted As Inpatient Condition: Fair Referrals: Kory De Oliveira DO [Primary Care Provider] - Forms: ED Satisfaction Letter, Work/School Release Time of Disposition: 00:20 General Adult HPI - General Chief complaint: ED Abdominal Pain Stated complaint: R Flank Pain Time Seen by Provider: 04/06/19 22:05 Source: patient Limitations: no limitations Nursing Notes Reviewed: Yes Vital Signs Reviewed: Yes - History of Present Illness Pain Scale: 10 - Related Data Home Medications Medication Instructions Recorded Confirmed Albuterol Sulfate [Proventil 2 puff IH Q4H PRN 04/10/17 04/06/19 Inhaler] Atorvastatin [Lipitor] 80 mg PO HS 04/10/17 04/06/19 Ipratropium/Albuterol Neb [Duoneb] 3 ml IH Q6HR PRN 06/19/17 04/06/19 Ibuprofen [Ibu] 1 tab PO TID PRN 08/22/18 04/06/19 Naproxen [Naprosyn] 1 tab PO Q12H PRN 08/22/18 04/06/19 Sertraline [Zoloft] 1 tab PO DAILY 08/22/18 04/06/19 Losartan/HCTZ 1 tab PO DAILY 04/06/19 04/06/19 Wellbutrin 1 tab PO DAILY 04/06/19 04/06/19 amLODIPine 1 tab PO DAILY 04/06/19 04/06/19 Allergies Allergy/AdvReac Type Severity Reaction Status Date / Time hydrocodone [From Lortab] Allergy Hallucinati Verified 04/06/19 22:04 ng Past Medical History - Past Medical History Medical history: Reports: asthma, hyperlipidemia, hypertension, kidney stones Surgical history: Reports: appendectomy, herniorrhaphy, other Psychiatric history: Reports: no psych history - Social History Smoking Status: Never smoker Smokeless Tobacco Status: No Alcohol use: Reports: none Drug use: Reports: none Physical Exam - General Limitations: no limitations General appearance: alert Course Vital Signs Temperature 97.6 F 04/06/19 21:43 Pulse Rate 92 04/06/19 21:43 Respiratory Rate 22 04/06/19 21:43 Blood Pressure 156/99 04/06/19 21:43 O2 Sat by Pulse Oximetry 98 04/06/19 21:43 Temperature 97.6 F 04/06/19 21:59 Pulse Rate 81 04/07/19 00:28 Respiratory Rate 16 04/07/19 00:28 Blood Pressure 139/84 04/07/19 00:28 O2 Sat by Pulse Oximetry 96 04/07/19 00:28 Oxygen Delivery Oxygen Delivery Room Air Medical Decision Making - Medical Records Medical records reviewed: Yes I reviewed the patient's medical records. - Lab Data Lab results reviewed: Yes I reviewed the patient's lab results. Result diagrams: 04/06/19 21:57 04/06/19 21:57 Lab Results 04/06/19 04/06/19 04/06/19 Range/Units 21:50 21:57 21:57 WBC 10.7 (4.3-11.1) K/mcL RBC 5.53 H (4.19-5.50) M/mcL Hgb 15.3 (12.9-16.9) g/dL Hct 44.9 (37.5-50.1) % MCV 81.2 L (83.0-100.0) fL MCH 27.7 L (28.0-33.3) pg MCHC 34.1 (31.6-35.5) g/dL RDW 12.6 (11.5-14.5) % Plt Count 317 (140-400) K/mcL MPV 9.3 L (9.4-12.4) fL Immature Gran % 0.4 (0-4) % Seg Neutrophils % 76.4 % Lymphocytes % 13.8 % Monocytes % 8.1 % Eosinophils % 1.0 % Basophils % 0.3 % Neutrophils # 8.2 (1.6-8.9) K/mcL Lymphocytes # 1.5 (0.6-4.6) K/mcL Monocytes # 0.9 (0.0-1.3) K/mcL Eosinophils # 0.1 (0.0-0.6) K/mcL Basophils # 0.0 (0.0-0.2) K/mcL Sodium 139 (136-145) mEq/L Potassium 3.3 L (3.5-5.1) mEq/L Chloride 102 (98-107) mEq/L Carbon Dioxide 22 L (23-29) mEq/L BUN 24 H (6-20) mg/dL Creatinine 1.43 H (0.70-1.30) mg/dL Est GFR ( Amer) > 60 (> 60) Est GFR (Non-Af Amer) 55 L (> 60) BUN/Creatinine Ratio 17 (6-26) Glucose 142 H (70-105) mg/dL Calculated Osmolality 294 (280-300) Calcium 9.7 (8.6-10.3) mg/dL Urine Color Yellow (Yellow) Urine Clarity Clear (Clear) Urine pH 5.0 (5.0-8.0) pH Units Ur Specific [place] 1.025 (1.010-1.025) Urine Protein Trace (Neg-Trace) mg/dL Urine Glucose (UA) Normal (Normal) mg/dL Urine Ketones Trace H (Negative) mg/dL Urine Blood Large H (Negative) Urine Nitrite Negative (Negative) Urine Bilirubin Negative (Negative) Urine Urobilinogen Normal (Normal) mg/dL Ur Leukocyte Esterase Negative (Negative) Urine Microscopic RBC 3-5 H (0-3) per hpf Urine Microscopic WBC 0-3 (0-3) per hpf Ur Squamous Epith Cells Moderate H (None-Few) per lpf Urine Bacteria None Seen (None-Few) per hpf Hyaline Casts None Seen (None-Few) per lpf Ur Culture Indicated? NO (NO) - Radiology Data Radiology results reviewed: Yes I reviewed the patient's radiology results. Abdomen/Pelvis CT 04/06/19 22:46 IMPRESSION: Obstructing proximal right ureteral calculus measuring 5 mm with hydroureteronephrosis. D/ / Alexandro Estrada / Alexandro Estrada Interpreting Provider: Alexandro Estrada Attestation Statement - Attestation Attestation: I, Tyler Valenzuela MD, personally evaluated this patient and discussed their management with the resident physician. I reviewed the resident's note and agree with the documented findings, medical decision making, and plan of care. 43-year-old male with a history of kidney sounds and a known intrarenal stone on the right presents to the emergency department with a complaint of acute onset of right flank pain radiating around to the right groin and right testicle approximately one hour prior to arrival. Patient states this feels like his typical kidney stone pain. He has had some nausea but no vomiting. No diaphoresis. No gross hematuria. No dysuria or frequency. No urethral discharge. No testicular swelling. On examination patient is a well-developed well-nourished well-appearing male in no acute distress but does appear to be in moderate discomfort. He is alert and oriented 3. There is no cyanosis or diaphoresis. Breath sounds are clear and equal bilaterally. Heart regular rate and rhythm. Abdomen is soft with normal bowel sounds. There is mild right mid and lower abdominal tenderness and mild right CVA tenderness. Right testicle is grossly normal in appearance with normal position. Mild tenderness. No inguinal hernia. exam performed by the medical student under my direct supervision. Labs reviewed. Mild GABRIELLE with creatinine of 1.43. Mild hematuria. CT the abdomen and pelvis shows a 5 mm stone in the proximal right ureter with right hydroureteronephrosis. Patient received IV fluids with pain medication here in the emergency department. He had some improvement but continues to have pain and does not f eel comfortable going home as he states most of his previous stones have required intervention and it is a long holiday weekend and it would be at least 4 days before patient could follow-up with urology. The urologist, Dr. Eugene, was consulted and will consult on the patient in the hospital. The hospitalist, Dr. De Jesus, was consulted and accepted admission of the patient.
[2019-04-07] MEDS ORDERED: *HR* FentaNYL (PF) 100 MCG/2 ML VIAL IVP ONE (00:22)
[2019-04-07] MEDS ORDERED: Naloxone 0.4 MG/ML INJ IVP PRN (01:10)
--- NOTE | 2019-04-07 01:10 | Internal Med History&Physical ---
Date of Encounter: 04/07/19 Time of Encounter: 01:04 Internal Medicine - H&P: HPI Chief complaint: Right Flank Pain History of present illness: Mr. Story is a 43 year old male with a past medical history of asthma, hyperlipidemia, hypertension, liver disease and kidney stones requiring surgical intervention and stenting in the past with Dr. Castaneda who presented to the ED with complaints of acute onset right flank pain radiating around to the right growing and right testicle which occurred earlier today shortly prior to arrival. Patient reports pain is consistent with his previous history of kidney stones. Denies any nausea vomiting, diaphoresis, dysuria or hematuria. No reports of fever or chills. Pain earlier today was 9 out of 10 associated with nausea but no vomiting. On arrival patient was afebrile and hemodynamically stable. Laboratory workup notable for an elevated creatinine consistent with acute kidney injury based on previous labs results. Urinalysis shows evidence of microscopic hematuria. CT of the abdomen and pelvis was performed which does show a 5 mm obstructing stone at the mid ureter with moderate hydronephrosis. Patient was given 1 L of fluids and pain control regimen in the ED. Admitted for further management of patien t's pain. Urology consulted. Past Med Surg Social Fam HX - Past Medical History Medical history: asthma, hyperlipidemia, hypertension, kidney stones Additional medical history: sleep apnea with CPAP (9). OCD Psychiatric history: no psych history - Past Surgical History Surgical History: appendectomy, herniorrhaphy, other Additional surgical history: kidney stones removed - Social History Smoking Status: Never smoker Smokeless Tobacco Status: No Alcohol use: none Drug use: none - Family History Mother Hx Family Respiratory Disorders: Yes (COPD.) Internal Medicine - H&P: Meds Albuterol Sulfate [Proventil Inhaler] 2 puff IH Q4H PRN 04/10/17 [History] Atorvastatin [Lipitor] 80 mg PO HS 04/10/17 [History] Ipratropium/Albuterol Neb [Duoneb] 3 ml IH Q6HR PRN 06/19/17 [History] Ibuprofen [Ibu] 1 tab PO TID PRN 08/22/18 [History] Naproxen [Naprosyn] 1 tab PO Q12H PRN 08/22/18 [History] Sertraline [Zoloft] 1 tab PO DAILY 08/22/18 [History] Losartan/HCTZ 1 tab PO DAILY 04/06/19 [History] Wellbutrin 1 tab PO DAILY 04/06/19 [History] amLODIPine 1 tab PO DAILY 04/06/19 [History] Allergy/AdvReac Type Severity Reaction Status Date / Time hydrocodone [From Lortab] Allergy Hallucinati Verified 04/06/19 22:04 ng All Systems PM: A 10-system review of systems was performed and is negative for pertinent findings except as documented above in the HPI. - Constitutional Constitutional: no chills, no fever(s), no night sweats - EENT Eyes: no change in vision, no discharge, no pain, no photophobia Ears: no ear discharge, no ear pain, no tinnitus Nose, mouth and throat: no dysphagia, no nasal discharge, no neck pain, no sore throat - Cardiovascular Cardiovascular ROS IM: no chest pain, no diaphoresis, no dyspnea, no lightheadedness, no palpitations, no syncope - Respiratory Respiratory: no cough, no dyspnea, no wheezing, no excessive phlegm production - Gastrointestinal Gastrointestinal: no abdominal pain, no diarrhea, no hematemesis, no hematochezia, no melena, no nausea, no vomiting - Musculoskeletal Musculoskeletal ROS IM: no numbness, no tingling - Integumentary Integumentary IM: no rash, no unusual bruising - Neurological Neurological ROS: no confusion, no convulsions, no focal weakness, no numbness, no tingling, no tremor(s) - Hematologic/Lymphatic Hematologic/Lymphatic: no easy bruising - Constitutional Vitals: Temp Pulse Resp BP Pulse Ox 98.3 F 81 16 120/68 96 04/07/19 00:47 04/07/19 00:28 04/07/19 00:47 04/07/19 00:47 04/07/19 00:28 Exam: General: Alert and oriented Skin:Normal color, no rash, no lesions. HEENT:EOM, pupils equal, round and reactive. Cardiovascular:Normal S1 & S2, no rubs, murmurs or gallops. No JVD. Pulse regular. Lungs:Normal breath sounds, no wheezes or crackles. Abdomen:Soft, non-tender, no rigidity. Mild right-sided CVA tenderness Extremities:No deformity, no edema or tenderness, no joint swelling or clubbing. Neurological:Normal cognition and motor skills. Pulses:Carotid and radial pulses normal +2. Rest of the physical exam is non contributory Internal Med - H&P Results - Labs CBC & Chem 7: 04/06/19 21:57 04/06/19 21:57 Labs: Short CBC 04/06/19 Range/Units 21:57 WBC 10.7 (4.3-11.1) K/mcL Hgb 15.3 (12.9-16.9) g/dL Hct 44.9 (37.5-50.1) % Plt Count 317 (140-400) K/mcL Neutrophils # 8.2 (1.6-8.9) K/mcL BMP 04/06/19 21:57 Sodium 139 Potassium 3.3 L Chloride 102 Carbon Dioxide 22 L BUN 24 H Creatinine 1.43 H Glucose 142 H Calcium 9.7 Urine 04/06/19 Range/Units 21:50 Urine Color Yellow (Yellow) Urine Clarity Clear (Clear) Urine pH 5.0 (5.0-8.0) pH Units Ur Specific [place] 1.025 (1.010-1.025) Urine Protein Trace (Neg-Trace) mg/dL Urine Glucose (UA) Normal (Normal) mg/dL - Impressions ITS Impressions Abdomen/Pelvis CT 04/06/19 22:46 IMPRESSION: Obstructing proximal right ureteral calculus measuring 5 mm with hydroureteronephrosis. D/ / Alexandro Estrada / Alexandro Estrada Interpreting Provider: Alexandro Estrada - Assessment and Plan (1) Right ureteral stone Current Visit: Yes Status: Acute Assessment and plan: Patient presenting with acute onset severe right-sided flank pain. CT scan showing an obstructing proximal right ureteral calculus measuring 5 mm with hydroureternephrosis. -Continue IV fluids -Pain control as needed -We will give one-time dose of tamsulosin -Consult to urology -We will keep patient nothing by mouth in the event of stone extraction. (2) GABRIELLE (acute kidney injury) Current Visit: Yes Status: Acute Assessment and plan: Acute kidney injury likely secondary to ureteral obstruction. Creatinine 1.43. Baseline appears to be around 1.0. -We will continue fluid support and monitor kidney function -Follow up urology recommendations (3) History of asthma Current Visit: Yes Status: Acute Assessment and plan: No evidence of asthma exacerbation. Resume home inhalers. (4) Hypertension Current Visit: Yes Status: Acute Assessment and plan: Blood pressure stable. Resume home antihypertensives. Qualifiers: Hypertension type: essential hypertension Qualified Code(s): I10 - Essenti al (primary) hypertension (5) DVT prophylaxis Current Visit: No Status: Acute Assessment and plan: Ambulate ad shivani. - Time Spent With Patient Total time spent is greater than 50% in coordination of care (as documented) at patient's floor/unit and/or counseling patient:
[2019-04-07] MEDS ORDERED: Ipratropium/Albuterol Neb 3 ML IH PRN (01:12)
[2019-04-07] MEDS: 0.9 % Sodium Chloride 1,000 ML IVC SCH ×2 (01:43→09:42)
[2019-04-07] MEDS: Ketorolac 30 MG/ML VIAL IVP PRN ×2 (01:44→09:02)
[2019-04-07] MEDS: Ondansetron 4 MG/2 ML VIAL IVP PRN ×2 (06:05→20:27)
--- NOTE | 2019-04-07 08:39 | Event Note ---
Date of Encounter: 04/07/19 Time of Encounter: 10:00 43 year old male with history of kidney stones presented for acute right flank pain. Patient had findings of GABRIELLE and CT abdomen/pelvis showed 5 mm obstructing stone. VS: stable on review. Physical exam shows well nourished male in no acute distress, RRR, lungs CTAB, abd: soft, nt/nd, ext: no edema, no cyanosis. Labs: reviewed. For right ureteral stone and GABRIELLE, plan for removal by Urology tomorrow AM. Recheck labs in AM.
[2019-04-07] MEDS ORDERED: aMILoride 5 MG TABLET PO SCH (09:00)
[2019-04-07] MEDS ORDERED: BuPROPion XL (24 HR) 150 MG TABLET PO SCH (09:00)
[2019-04-07] MEDS ORDERED: hydroCHLOROthiazide 25 MG TABLET PO SCH (09:00)
[2019-04-07 09:06] LABS: Hematocrit 40.2 % (37.5-50.1); Mean Corpuscular HGB Conc 34.1 g/dL (31.6-35.5); Mean Corpuscular Hemoglobin 28.2 pg (28.0-33.3); Mean Corpuscular Volume 82.9 fL (83.0-100.0); Mean Platelet Volume 9.6 fL (9.4-12.4); Platelet Count 228 K/mcL (140-400); Red Blood Count 4.85 M/mcL (4.19-5.50); Red Cell Distribution Width 12.7 % (11.5-14.5)
[2019-04-07 09:08] LABS: Hemoglobin 13.7 g/dL (12.9-16.9)
[2019-04-07 09:13] LABS: INR 1.1; Prothrombin Time 12.5 Seconds (9.4-12.1)
[2019-04-07 09:15] LABS: Activated Partial Thrombo Time 32.4 Seconds (26.0-36.0)
[2019-04-07 09:25] LABS: BUN/Creatinine Ratio 19 (6-26); Blood Urea Nitrogen 25 mg/dL (6-20); Calcium 8.5 mg/dL (8.6-10.3); Carbon Dioxide 22 mEq/L (23-29); Chloride 105 mEq/L (98-107); Glucose 108 mg/dL (70-105); Osmolality,Calculated 291 (280-300); Potassium 3.2 mEq/L (3.5-5.1); Sodium 138 mEq/L (136-145); eGFR For African Americans > 60 (> 60); eGFR For Non-African Americans 59 (> 60)
--- NOTE | 2019-04-07 09:33 | Urology - Consult Note ---
Date of Encounter: 04/07/19 Time of Encounter: : - Assessment and Plan (1) Hydronephrosis, right Current Visit: Yes Status: Acute Assessment and plan: Hydronephrosis likely secondary to mid ureteral stone. Mild to moderate at this time. No urgent indication for decompression. (2) Right ureteral stone Current Visit: Yes Status: Acute Assessment and plan: pt will continue with medical expulsion therapy today. If he fails to pass the stone we will plan on right ureteroscopic stone extraction tomorrow. (3) Acute renal insufficiency Current Visit: No Status: Acute Assessment and plan: Patient serum elevated to 1.4 at admission but this has improved 1.3 just overnight with fluids. Continue with IV fluids. (4) Nausea without vomiting Current Visit: Yes Status: Acute Assessment and plan: Controlled at this time. Continue with medication as needed. Urology CN:DEVIN Consult date: 04/07/19 Reason for consult Urology: Hydronephrosis Requesting physician: Joe Rose History of present illness: Harsha is a 43-year-old male with a history of presentation to the emergency room secondary to severe right-sided flank pain. Patient states his pain was initially a 10 out of 10 in nature. Patient with some nausea without vomiting. No fevers. Patient underwent CT scan which revealed a 5 mm mid proximal right ureteral stone with some mild to moderate right-sided hydronephrosis. At this time the patient's pain is controlled. Patient's serum creatinine was slightly elevated upon admission. Past Med Surg Social Fam HX - Past Medical History Medical history: asthma, hyperlipidemia, hypertension, kidney stones Additional medical history: sleep apnea with CPAP (9). OCD Psychiatric history: no psych history - Past Surgical History Surgical History: appendectomy, herniorrhaphy, other Additional surgical history: kidney stones removed - Social History Smoking Status: Never smoker Smokeless Tobacco Status: No Alcohol use: none Drug use: none - Family History Mother Hx Family Respiratory Disorders: Yes (COPD.) Medications and Allergies Albuterol Sulfate [Proventil Inhaler] 2 puff IH Q4H PRN 04/10/17 [History] Atorvastatin [Lipitor] 80 mg PO HS 04/10/17 [History] Ipratropium/Albuterol Neb [Duoneb] 3 ml IH Q6HR PRN 06/19/17 [History] Ibuprofen [Ibu] 1 tab PO TID PRN 08/22/18 [History] Naproxen [Naprosyn] 1 tab PO Q12H PRN 08/22/18 [History] Sertraline [Zoloft] 1 tab PO DAILY 08/22/18 [History] Losartan/HCTZ 1 tab PO DAILY 04/06/19 [History] Wellbutrin 1 tab PO DAILY 04/06/19 [History] amLODIPine 1 tab PO DAILY 04/06/19 [History] Allergy/AdvReac Type Severity Reaction Status Date / Time hydrocodone [From Lortab] Allergy Hallucinati Verified 04/06/19 22:04 ng Review of Systems - Constitutional no chills, no fever(s) - EENT Nose, mouth and throat: no dizziness - Cardiovascular no chest pain - Respiratory no cough, no dyspnea - Gastrointestinal nausea, no vomiting - Genitourinary as per HPI - Musculoskeletal no back pain - Integumentary no erythema, no swelling - Neurological no sensory deficit, no syncope - Psychiatric no confusion, no depression - Hematologic/Lymphatic no easy bruising, no lymphadenopathy - Allergic/Immunologic no throat swelling, no wheezing Exam Initial Vital Signs Temp Pulse Resp BP Pulse Ox 97.6 F 92 22 156/99 98 04/06/19 21:43 04/06/19 21:43 04/06/19 21:43 04/06/19 21:43 04/06/19 21:43 General/Neuological: alert and oriented x 3 Eyes: normal pupils, non-icteric Neck: no lymphadenopathy noted, supple to touch Cardiovascular: RRR, no murmurs Respiratory: normal respiratory effort, clear bilaterally ABD: soft, nontender, no masses palpated, good bowel sounds Back: no pain on percussion bilaterally : normal phallus, normal scrotum, testicles and epididymides normal, urethral meatus normal. Skin: no rashes noted Musculoskeletal: normal gait, FROM Urology Results - Labs 04/07/19 08:45 04/07/19 08:45 Abnormal lab results RBC 5.53 M/mcL (4.19-5.50) H 04/06/19 21:57 MCV 82.9 fL (83.0-100.0) L 04/07/19 08:45 MCH 27.7 pg (28.0-33.3) L 04/06/19 21:57 MPV 9.3 fL (9.4-12.4) L 04/06/19 21:57 PT 12.5 Seconds (9.4-12.1) H 04/07/19 08:45 Potassium 3.2 mEq/L (3.5-5.1) L 04/07/19 08:45 Carbon Dioxide 22 mEq/L (23-29) L 04/07/19 08:45 BUN 25 mg/dL (6-20) H 04/07/19 08:45 Creatinine 1.33 mg/dL (0.70-1.30) H 04/07/19 08:45 Est GFR (Non-Af Amer) 59 (> 60) L 04/07/19 08:45 Glucose 108 mg/dL (70-105) H 04/07/19 08:45 Calcium 8.5 mg/dL (8.6-10.3) L 04/07/19 08:45 Urine Ketones Trace mg/dL (Negative) H 04/06/19 21:50 Urine Blood Large (Negative) H 04/06/19 21:50 Urine Microscopic RBC 3-5 per hpf (0-3) H 04/06/19 21:50 Ur Squamous Epith Cells Moderate per lpf (None-Few) H 04/06/19 21:50 Diabetes panel 04/06/19 04/07/19 Range/Units 21:57 08:45 Sodium 139 138 (136-145) mEq/L Potassium 3.3 L 3.2 L (3.5-5.1) mEq/L Chloride 102 105 (98-107) mEq/L Carbon Dioxide 22 L 22 L (23-29) mEq/L BUN 24 H 25 H (6-20) mg/dL Creatinine 1.43 H 1.33 H (0.70-1.30) mg/dL Glucose 142 H 108 H (70-105) mg/dL Calcium 9.7 8.5 L (8.6-10.3) mg/dL Calcium panel 04/06/19 04/07/19 Range/Units 21:57 08:45 Calcium 9.7 8.5 L (8.6-10.3) mg/dL Pituitary panel 04/06/19 04/07/19 Range/Units 21:57 08:45 Sodium 139 138 (136-145) mEq/L Potassium 3.3 L 3.2 L (3.5-5.1) mEq/L Chloride 102 105 (98-107) mEq/L Carbon Dioxide 22 L 22 L (23-29) mEq/L BUN 24 H 25 H (6-20) mg/dL Creatinine 1.43 H 1.33 H (0.70-1.30) mg/dL Glucose 142 H 108 H (70-105) mg/dL Calcium 9.7 8.5 L (8.6-10.3) mg/dL Adrenal panel 04/06/19 04/07/19 Range/Units 21:57 08:45 Sodium 139 138 (136-145) mEq/L Potassium 3.3 L 3.2 L (3.5-5.1) mEq/L Chloride 102 105 (98-107) mEq/L Carbon Dioxide 22 L 22 L (23-29) mEq/L BUN 24 H 25 H (6-20) mg/dL Creatinine 1.43 H 1.33 H (0.70-1.30) mg/dL Glucose 142 H 108 H (70-105) mg/dL Calcium 9.7 8.5 L (8.6-10.3) mg/dL All other labs normal. - Imaging CT scan - abdomen: image reviewed CT scan - pelvis: image reviewed (CT scan was personally reviewed which revealed a right mid 5 mm stone.) Consult Discharge Plan - Plan Referrals: Kory De Oliveira DO [Primary Care Provider] -
[2019-04-07] MEDS ORDERED: Ketorolac 30 MG/ML VIAL IVP ONE (23:09)
[2019-04-08] MEDS ORDERED: Ipratropium/Albuterol Neb 3 ML IH ONE (06:58)
--- NOTE | 2019-04-08 07:06 | Anesthesia Evaluation PreOp ---
Date of Encounter: 04/08/19 Time of Encounter: 07:00 - Past History Planned Operation: Rt USE/ Holmium Laser Cardiac History: HTN, Hyperlipidemia Pulmonary History: Asthma, DELILAH Dx (cpap 9) [employer] History: Denies Any Significant HX Other Medical History: Denies Any Significant HX Anesthesia History: No Prior Anesthetic Complications Alcohol Use: none Drug use: none Medications and Allergies Albuterol Sulfate [Proventil Inhaler] 2 puff IH Q4H PRN 04/10/17 [History] Atorvastatin [Lipitor] 80 mg PO HS 04/10/17 [History] Ipratropium/Albuterol Neb [Duoneb] 3 ml IH Q6HR PRN 06/19/17 [History] Ibuprofen [Ibu] 1 tab PO TID PRN 08/22/18 [History] Naproxen [Naprosyn] 1 tab PO Q12H PRN 08/22/18 [History] Sertraline [Zoloft] 1 tab PO DAILY 08/22/18 [History] Losartan/HCTZ 1 tab PO DAILY 04/06/19 [History] Wellbutrin 1 tab PO DAILY 04/06/19 [History] amLODIPine 1 tab PO DAILY 04/06/19 [History] Allergy/AdvReac Type Severity Reaction Status Date / Time hydrocodone [From Lortab] Allergy Hallucinati Verified 04/06/19 22:04 ng - Meds/Allergy Pre-op Review Medications Reviewed: Yes Allergies Reviewed: Yes Beta Blockers on Current Med List: No Anesthesia Results - Labs 04/07/19 08:45 04/07/19 08:45 Anesthesia Exam O2 Sat Weight 86 kg O2 Sat by Pulse Oximetry 96 O2 Sat by Pulse Oximetry 96 O2 Sat by Pulse Oximetry 95 O2 Sat by Pulse Oximetry 93 O2 Sat by Pulse Oximetry 96 Vital Signs Temp Pulse Resp BP Pulse Ox 97.6 F 92 22 156/99 98 04/06/19 21:43 04/06/19 21:43 04/06/19 21:43 04/06/19 21:43 04/06/19 21:43 Height: 5'9 Weight: 189 lbs NPO (# of Hours): MN Pain Scale: 0 - HEENT Pupil (Motor): Pupils equal, EOMI Mallampati: II Teeth: Normal Oral Opening: Greater than 3 - [employer] LOC: Oriented [employer] Motor: Normal RUE, Normal LUE, Normal RLE, Normal LLE, Normal Face [employer] Sensory: Normal: RUE, LUE, RLE, LLE, Face - Cardiac Rhythm: Regular Murmur: None JVD: No Carotid Bruit: No - Pulmonary Breath Sounds: bilateral Clear Respiratory Effort: Symmetrical Anesthesia Assess/Plan ASA Score: 3 (HTN DELILAH Asthma) Level of consciousness: Cooperative, Oriented Anesthetic Plan: General Autologous Blood: No Monitoring Plan: Standard Monitors Recovery Plan: PACU (Discussed GA, agrees to proceed)
[2019-04-08] MEDS ORDERED: *HR* FentaNYL (PF) 100 MCG/2 ML VIAL ONE ×2 (07:09→08:10)
[2019-04-08] MEDS ORDERED: *HR* Propofol 200 MG/20 ML VIAL IVP ONE ×2 (07:09→08:17)
[2019-04-08] MEDS ORDERED: Dexamethasone 4 MG/ML VIAL ONE (07:10)
[2019-04-08] MEDS ORDERED: *HR* Midazolam HCl 2 MG/2 ML VIAL ONE (07:10)
[2019-04-08] MEDS ORDERED: Ondansetron 4 MG/2 ML VIAL ONE (07:10)
[2019-04-08] MEDS ORDERED: Lidocaine -MPF 2% 2 ML VIAL ONE (07:10)
--- NOTE | 2019-04-08 07:26 | Urology Progress Note ---
Date of Encounter: 04/08/19 Time of Encounter: 07:25 - Assessment and Plan (1) Hydronephrosis, right Current Visit: Yes Status: Acute (2) Right ureteral stone Current Visit: Yes Status: Acute Assessment and plan: to OR today for right ureteroscopic stone extraction. (3) Acute renal insufficiency Current Visit: No Status: Acute (4) Nausea without vomiting Current Visit: Yes Status: Acute Progress Note Narrative: patient seen. feeling ok. to or today as did not pass stone. Objective Initial Vital Signs Temp Pulse Resp BP Pulse Ox 97.6 F 92 22 156/99 98 04/06/19 21:43 04/06/19 21:43 04/06/19 21:43 04/06/19 21:43 04/06/19 21:43 - General physical appearance Present: well developed, well nourished - Abdomen Present: soft. Absent: tender - Labs 04/07/19 08:45 04/07/19 08:45 Diabetes panel 04/07/19 Range/Units 08:45 Sodium 138 (136-145) mEq/L Potassium 3.2 L (3.5-5.1) mEq/L Chloride 105 (98-107) mEq/L Carbon Dioxide 22 L (23-29) mEq/L BUN 25 H (6-20) mg/dL Creatinine 1.33 H (0.70-1.30) mg/dL Glucose 108 H (70-105) mg/dL Calcium 8.5 L (8.6-10.3) mg/dL Calcium panel 04/07/19 Range/Units 08:45 Calcium 8.5 L (8.6-10.3) mg/dL Pituitary panel 04/07/19 Range/Units 08:45 Sodium 138 (136-145) mEq/L Potassium 3.2 L (3.5-5.1) mEq/L Chloride 105 (98-107) mEq/L Carbon Dioxide 22 L (23-29) mEq/L BUN 25 H (6-20) mg/dL Creatinine 1.33 H (0.70-1.30) mg/dL Glucose 108 H (70-105) mg/dL Calcium 8.5 L (8.6-10.3) mg/dL Adrenal panel 04/07/19 Range/Units 08:45 Sodium 138 (136-145) mEq/L Potassium 3.2 L (3.5-5.1) mEq/L Chloride 105 (98-107) mEq/L Carbon Dioxide 22 L (23-29) mEq/L BUN 25 H (6-20) mg/dL Creatinine 1.33 H (0.70-1.30) mg/dL Glucose 108 H (70-105) mg/dL Calcium 8.5 L (8.6-10.3) mg/dL Consult Discharge Plan - Plan Referrals: Kory De Oliveira DO [Primary Care Provider] -
[2019-04-08] MEDS ORDERED: Albuterol 2.5 MG/3 ML NEBULIZER ONE (07:29)
[2019-04-08] MEDS ORDERED: ceFAZolin 2,000 MG in Water for inj. (sterile) 20 ML IVP ONE ×2 (07:41→09:41)
[2019-04-08] MEDS ORDERED: Ketorolac 30 MG/ML VIAL ONE (08:23)
--- NOTE | 2019-04-08 08:33 | Operative Note ---
Date of procedure: 04/08/19 Pre-op diagnosis: right proximal ureteral stone Post-op diagnosis: same Procedure: Right ureteroscopic basket retrieval of stone Anesthesia: SATNAMA Surgeon: Derek Eugene Was there an assistant counsel present: No Estimated blood loss (cc): 0 Specimen: Right kidney stone Condition: stable Disposition: PACU Procedure in Detail: Patient was prepped and draped in normal sterile fashion. Timeout procedure performed. I then inserted the semirigid ureteroscope into the patient's bladder and advanced it up the right ureter. I encountered the proximal ureteral/renal pelvis stone. I was able to engage the stone using a Min basket. At this point I was able to remove the stone in its entirety. Bladder was drained and procedure was ended. Patient taken to PACU in stable condition. Patient okay to discharge home from urology standpoint. Patient follow-up with Dr. Castaneda in 3-4 weeks.
[2019-04-08] MEDS ORDERED: Ipratropium/Albuterol Neb 3 ML IH PRN (09:41)
[2019-04-08] MEDS ORDERED: Ondansetron 4 MG/2 ML VIAL IVP PRN (09:41)
[2019-04-08] MEDS ORDERED: Naloxone 0.4 MG/ML INJ IVP PRN (09:41)
--- NOTE | 2019-04-08 09:47 | Anesthesia Evaluation Post Op ---
Date of Encounter: 04/08/19 Time of Encounter: 09:45 - Vital Signs Vital Signs: Vital Signs/O2 Sat/Glucose, Most Current Temp Pulse Resp BP Pulse Ox 04/08/19 09:01 98.0 F 92 16 123/80 96 04/08/19 08:51 85 16 119/79 93 04/08/19 08:41 87 16 104/71 94 04/08/19 08:31 99.2 F 90 12 115/74 97 - Lungs Lungs: Clear Ascult./Percussion - Airway Airway: Non-obstructed - Cardiovascular Regular Rate - Mental Status Mental Status: Alert & Oriented, Answers Appropriately - Pain Pain Scale: 0 - Nausea Vomiting Nausea Vomiting: Not Present - Hydration Hydration: Ice chips - Discharge PostOp Status: Transfer Patient to floor
--- NOTE | 2019-04-08 09:53 | Discharge Summary ---
- NOTES TO OUTPATIENT PROVIDER Notes to Outpatient Provider: Repeat BMP if needed. Stone extracted and renal function improved prior with IV fluid hydration. NSAIDs held on DC due to GABRIELLE. Orders not resulted at time of discharge: Pending orders 04/08/19 08:42 Surgical Pathology [PTH] Routine Date of Encounter: 04/08/19 Time of Encounter: 09:51 - Discharge Diagnosis (1) Right ureteral stone Priority: Primary Status: Acute (2) GABRIELLE (acute kidney injury) Priority: Secondary Status: Acute (3) DVT prophylaxis Priority: Secondary Status: Acute (4) History of asthma Priority: Secondary Status: Acute (5) Hypertension Priority: Secondary Status: Acute Qualifiers: Hypertension type: essential hypertension Qualified Code(s): I10 - Essential (primary) hypertension Hospital course: Mr. Story is a 43 year old male with a past medical history of asthma, hyperlipidemia, hypertension, liver disease and kidney stones requiring surgical intervention and stenting in the past with Dr. Castaneda who presented to the ED with complaints of acute onset right flank pain radiating around to the right growing and right testicle which occurred earlier today shortly prior to arrival. Patient reports pain is consistent with his previous history of kidney stones. A CT of abdomen/pelvis showed obstructed proximal right ureteral stone 5 mm in size with hydroureteronephrosis. He had creatinine elevation of 1.43, which is above his baseline. He was started on IV fluids. Creatinine trended down. Urology consulted and had stone extraction without complication. He was discharged in stable condition. - Time Spent with Patient Total time spent providing and/or coordinating discharge services: - Discharge Medications Prescriptions: Continued Atorvastatin [Lipitor] 80 mg PO HS Albuterol Sulfate [Proventil Inhaler] 2 puff IH Q4H PRN PRN Reason: Shortness Of Breath Ipratropium/Albuterol Neb [Duoneb] 3 ml IH Q6HR PRN PRN Reason: Wheezing Sertraline [Zoloft] 1 tab PO DAILY amLODIPine 1 tab PO DAILY Losartan/HCTZ 1 tab PO DAILY Wellbutrin 1 tab PO DAILY Discontinued Ibuprofen [Ibu] 1 tab PO TID PRN PRN Reason: Pain Naproxen [Naprosyn] 1 tab PO Q12H PRN PRN Reason: Pain Home Medications: Albuterol Sulfate [Proventil Inhaler] 2 puff IH Q4H PRN 04/10/17 [History] Atorvastatin [Lipitor] 80 mg PO HS 04/10/17 [History] Ipratropium/Albuterol Neb [Duoneb] 3 ml IH Q6HR PRN 06/19/17 [History] Sertraline [Zoloft] 1 tab PO DAILY 08/22/18 [History] Losartan/HCTZ 1 tab PO DAILY 04/06/19 [History] Wellbutrin 1 tab PO DAILY 04/06/19 [History] amLODIPine 1 tab PO DAILY 04/06/19 [History] Allergies/Adverse Reactions: 3 Allergy/AdvReac Type Severity Reaction Status Date / Time hydrocodone [From Lortab] Allergy Hallucinati Verified 04/06/19 22:04 ng Date of admission: 04/07/19 00:38 Primary care physician: Kory De Oliveira DO Consults: 04/07/19 00:27 Consult to Urology [CONS] Stat Consulting Provider: [facility] [place] Reason for Consult: intractable pain with right nephrolithiasis and hydronephrosis. Hx of stenting Time Notified: 00:28 Call Completed: Yes - Constitutional Vitals: Temp Pulse Resp BP Pulse Ox 98.0 F 92 16 123/80 96 04/08/19 09:01 04/08/19 09:01 04/08/19 09:01 04/08/19 09:01 04/08/19 09:01 General appearance: Present: A&O X 3 Exam: . - Head Head exam: Present: atraumatic, normocephalic - Eye Eye exam: Present: PERRL, conjuntiva pink, sclera anicteric Pupils: Present: PERRL - Neck Neck exam general surgery: Present: supple, trachea midline. Absent: lymphadenopathy - Respiratory Respiratory exam: Present: CTAB. Absent: accessory muscle use, rales, rhonchi, wheezes - Cardiovascular Cardiovascular exam: Present: RRR, +S1, +S2. Absent: diastolic murmur, gallop, rubs, systolic murmur - GI/Abdominal GI/Abdominal exam: Present: normal bowel sounds, soft, no peritoneal signs. Absent: distended, tenderness - Extremities Exam Extremities exam: Present: warm, radial pulses palpable and symmetrical. Absent: calf tenderness, cyanotic, pedal edema - Neurological Exam Neurological exam: Present: CN II-XII intact, oriented X3, no focal deficits. Absent: pronater drift, facial droop, speech deficit - Skin Skin exam: Present: dry, intact - Patient Status Disposition: Home, Self-Care Condition: Fair Functional capacity at discharge: independent ambulation Overall status at discharge: patient is back to baseline - Discharge Instructions Follow Up With: Kory De Oliveira, [Primary Care Provider] - - Diet and Activity Activity: increase activity as tolerated Diet: advance to your usual diet
[2019-04-08 12:48] VITALS: BP 118/70
[2019-04-09] MEDS ORDERED: aMILoride 5 MG TABLET PO SCH (09:00)
[2019-04-09] MEDS ORDERED: hydroCHLOROthiazide 25 MG TABLET PO SCH (09:00)
[2019-04-09] MEDS ORDERED: BuPROPion XL (24 HR) 150 MG TABLET PO SCH (09:00)
[2019-04-12 10:10] LABS: Calculi Mass 80 mg
== END 2019-04-08 13:46 | disposition home or self-care (01) ==
LOC: EMEROOARM 21:42 → 3ANU 21:42 → SUATTDRO 04-07 00:38 → 3ANU 04-07 01:00
PROVIDERS: ADMIT Internal Medicine; ATTEND Student in an Organized Health Care Education/Training Program

== ENCOUNTER 2019-04-13 05:46 | Observation (INO) ==
[2019-04-13] MEDS ORDERED: Ondansetron 4 MG/2 ML VIAL IVP ONE (06:31)
[2019-04-13] MEDS ORDERED: 0.9 % Sodium Chloride 1,000 ML IVC ONE ×2 (06:31→09:58)
[2019-04-13] MEDS ORDERED: Morphine Sulfate 2 MG/ML SYRINGE IVP ONE (06:31)
--- NOTE | 2019-04-13 06:47 | Emergency Department Note ---
Disposition Clinical Impression: Abdominal pain Qualifiers: Abdominal location: unspecified location Qualified Code(s): R10.9 - Unspecified abdominal pain Disposition: Admitted As Inpatient Condition: Fair Referrals: Kory De Oliveira DO [Primary Care Provider] - Forms: ED Satisfaction Letter, Work/School Release Time of Disposition: 10:21 Abdominal Pain HPI - General Chief Complaint: ED Abdominal Pain Stated Complaint: Breakthrough Kidney Pain Time Seen by Provider: 04/13/19 06:20 Source: patient Limitations: no limitations Nursing Notes Reviewed: Yes Vital Signs Reviewed: Yes - History of Present Illness HPI Narrative: Alert and oriented nontoxic-appearing 43-year-old male presents with complaint of right flank pain. Patient reports had a recent kidney stone was read through basket retrieval 5 days ago. He reports pain that started 4 days ago and has been persistent since onset accompanied by intermittent nausea and vomiting. Patient reports that he has been evaluated in this ED 3 times since procedure with no resolution of symptoms. He states that he had noted hematuria tonight. Patient reports that he has a follow-up appointment today with urologist at 1 PM. Patient also reports pain from thrombosed external hemorrhoids and states that topical hydrocortisone stool softeners do not seem to be working to help resolving symptoms. Patient reports that he is to follow-up with Dr. Guajardo for hemorrhoid removal on Tuesday morning. Pt Subjective Complaint: flank pain Onset (ago): day(s) Consistency: constant Location: R flank Pain Severity: moderate Pain Scale: 9 Quality: cramping, stabbing, aching, sharp Migration to: no migration Improves with: nothing Worsens with: nothing Associated symptoms: Reports: nausea, vomiting, hematuria. Denies: diarrhea, fever, chills, constipation, hematochezia Treatments prior to arrival: OTC medications, prescription analgesics - Related Data Home Medications Medication Instructions Recorded Confirmed Albuterol Sulfate [Proventil 2 puff IH Q4H PRN 04/10/17 04/06/19 Inhaler] Atorvastatin [Lipitor] 80 mg PO HS 04/10/17 04/06/19 Ipratropium/Albuterol Neb [Duoneb] 3 ml IH Q6HR PRN 06/19/17 04/06/19 Sertraline [Zoloft] 1 tab PO DAILY 08/22/18 04/06/19 Losartan/HCTZ 1 tab PO DAILY 04/06/19 04/06/19 Wellbutrin 1 tab PO DAILY 04/06/19 04/06/19 amLODIPine 1 tab PO DAILY 04/06/19 04/06/19 Previous Rx's Medication Instructions Recorded Docusate [Colace] 100 mg PO DAILY #14 capsule 04/11/19 Hydrocortisone [Anusol-Hc] 30 gm RC DAILY #1 cream..g. 04/11/19 OxyCODONE/APAP 5/325 [Percocet 1 each PO Q6HR PRN 4 Days #14 04/11/19 5/325 MG] tablet Polyethylene Glycol 3350 [MiraLAX] 17 gm PO DAILY #30 powd.pack 04/11/19 Pramoxine HCl [Proctofoam] 15 gm TP QID PRN #1 foam 04/11/19 Pramoxine [Proctofoam] 15 gm TP TID #1 package 04/11/19 Allergies Allergy/AdvReac Type Severity Reaction Status Date / Time hydrocodone [From Lortab] Allergy Hallucinati Verified 04/06/19 22:04 ng Review of Systems: As Per HPI Constitutional: Reports: as per HPI. Denies: fever, chills, weakness Cardiovascular: Denies: chest pain, palpitations, dyspnea on exertion, syncope Respiratory: Denies: cough, dyspnea, wheezes Gastrointestinal: Reports: abdominal pain, nausea, vomiting. Denies: diarrhea, constipation, hematemesis, hematochezia Genitourinary: Reports: dysuria, frequency, hematuria. Denies: discharge, testicular pain Musculoskeletal: Reports: back pain Neurological: Denies: headache, weakness, numbness, paresthesias Endocrine: Denies: fatigue Abdominal Pain PMH - Past Medical History Medical history: Reports: asthma, hyperlipidemia, hypertension, kidney stones Male Surgical History: Reports: appendectomy, other Psychiatric history: Reports: no psych history - Social History Smoking status: Never smoker Alcohol use: Reports: none Drug use: Reports: none Physical Exam - General General appearance: alert, in distress - Head Head exam: atraumatic, normocephalic - Eye Eye exam: Present: normal appearance, EOMI. Absent: scleral icterus, conjunctival injection, periorbital swelling - ENT ENT exam: normal exam, mucous membranes moist - Neck Neck exam: Present: normal inspection, trachea midline. Absent: meningismus - Chest Chest inspection: Present: normal inspection, symmetric chest wall rise - Respiratory Respiratory exam: Present: normal lung sounds bilaterally. Absent: respiratory distress, wheezes, stridor - Cardiovascular Cardiovascular exam: Present: regular rate, normal heart sounds - Abdominal Exam Abdominal exam: Present: Non-Tender - Extremities Exam Extremities exam: Present: normal inspection. Absent: tenderness - Back Exam Back exam: Absent: tenderness - Neurological Exam Neurological exam: Present: alert, oriented X3 - Psychiatric Psychiatric exam: Present: normal affect, normal mood - Skin Skin exam: Present: warm, dry, intact, normal color Course Course Narrative: Patient reports that upon trying to urinate he feels as if he has to force the stream out. He was able to void a small amount. Will bladder scan at this time. Consult with Dr. Hendrickson illness patient, he is assessed the patient and agrees with plan of care. Dr. Hendrickson spoke with Dr. Alcantara, urologist, who states that patient may be admitted under his service and further assessed the morning. Vital Signs Temperature 97.6 F 04/13/19 06:06 Pulse Rate 100 04/13/19 06:06 Respiratory Rate 18 04/13/19 06:06 Blood Pressure 145/93 04/13/19 06:06 O2 Sat by Pulse Oximetry 97 04/13/19 06:06 Temperature 97.6 F 04/13/19 06:06 Pulse Rate 84 04/13/19 06:39 Respiratory Rate 16 04/13/19 06:39 Blood Pressure 138/82 04/13/19 06:39 O2 Sat by Pulse Oximetry 95 04/13/19 06:39 Oxygen Delivery Oxygen Delivery Room Air Abdominal Pain - Lab Data Lab results reviewed: Yes I reviewed the patient's lab results. Result diagrams: 04/13/19 06:45 04/13/19 06:45 Lab Results 04/13/19 04/13/19 04/13/19 Range/Units 06:45 06:45 07:40 WBC 12.6 H (4.3-11.1) K/mcL RBC 5.66 H (4.19-5.50) M/mcL Hgb 15.8 (12.9-16.9) g/dL Hct 47.0 (37.5-50.1) % MCV 83.0 (83.0-100.0) fL MCH 27.9 L (28.0-33.3) pg MCHC 33.6 (31.6-35.5) g/dL RDW 12.8 (11.5-14.5) % Plt Count 335 (140-400) K/mcL MPV 9.0 L (9.4-12.4) fL Immature Gran % 0.5 (0-4) % Seg Neutrophils % 81.3 % Lymphocytes % 8.6 % Monocytes % 8.8 % Eosinophils % 0.6 % Basophils % 0.2 % Neutrophils # 10.3 H (1.6-8.9) K/mcL Lymphocytes # 1.1 (0.6-4.6) K/mcL Monocytes # 1.1 (0.0-1.3) K/mcL Eosinophils # 0.1 (0.0-0.6) K/mcL Basophils # 0.0 (0.0-0.2) K/mcL Sodium 134 L (136-145) mEq/L Potassium 3.8 (3.5-5.1) mEq/L Chloride 109 H (98-107) mEq/L Carbon Dioxide 22 L (23-29) mEq/L BUN 27 H (6-20) mg/dL Creatinine 1.65 H (0.70-1.30) mg/dL Est GFR ( Amer) 56 L (> 60) Est GFR (Non-Af Amer) 46 L (> 60) BUN/Creatinine Ratio 16 (6-26) Glucose 159 H (70-105) mg/dL Calculated Osmolality 286 (280-300) Calcium 9.7 (8.6-10.3) mg/dL Total Bilirubin 0.9 (0.3-1.0) mg/dL Direct Bilirubin 0.1 (0.0-0.2) mg/dL Indirect Bilirubin 0.8 (0.0-1.2) mg/dL AST 16 (13-39) Units/L ALT 18 (7-52) Units/L Alkaline Phosphatase 117 H (34-104) Units/L Serum Total Protein 7.6 (6.4-8.9) g/dL Albumin 4.8 (3.5-5.7) g/dL Globulin 2.8 (2.4-3.5) g/dL Albumin/Globulin Ratio 1.7 (1.1-2.2) Amylase 21 L (29-103) Units/L Lipase 11 (11-82) Units/L Urine Color Yellow (Yellow) Urine Clarity Cloudy A (Clear) Urine pH 5.5 (5.0-8.0) pH Units Ur Specific [place] > 1.030 H (1.010-1.025) Urine Protein 30 H (Neg-Trace) mg/dL Urine Glucose (UA) Normal (Normal) mg/dL Urine Ketones Negative (Negative) mg/dL Urine Blood Large H (Negative) Urine Nitrite Negative (Negative) Urine Bilirubin Small H (Negative) Urine Urobilinogen Normal (Normal) mg/dL Ur Leukocyte Esterase Small H (Negative) Urine Microscopic RBC 30-50 H (0-3) per hpf Urine Microscopic WBC 15-30 H (0-3) per hpf Ur Squamous Epith Cells Moderate H (None-Few) per lpf Calcium Oxalate Crystal Present Urine Bacteria Few (None-Few) per hpf Hyaline Casts Moderate H (None-Few) per lpf Urine Sperm Present Ur Culture Indicated? YES A (NO) - Radiology Data Radiology results reviewed: Yes I reviewed the patient's radiology results. Abdomen/Pelvis CT 04/13/19 08:42 IMPRESSION: Previously described right-sided obstructing ureteral calculus is no longer visualized and has likely passed. However, there is residual hydronephrosis/hydroureter and periureteral edema. No additional nephrolithiasis. D/ / Yunior Low MD / Yunior Low MD Interpreting Provider: Yunior Low MD
[2019-04-13 07:07] LABS: Basophils % 0.2 %; Eosinophils # 0.1 K/mcL (0.0-0.6); Eosinophils % 0.6 %; Hemoglobin 15.8 g/dL (12.9-16.9); Immature Granulocytes % 0.5 % (0-4); Lymphocytes # 1.1 K/mcL (0.6-4.6); Lymphocytes % 8.6 %; Mean Corpuscular HGB Conc 33.6 g/dL (31.6-35.5); Mean Corpuscular Hemoglobin 27.9 pg (28.0-33.3); Monocytes # 1.1 K/mcL (0.0-1.3); Monocytes % 8.8 %; Neutrophils # 10.3 K/mcL (1.6-8.9); Platelet Count 335 K/mcL (140-400); Red Blood Count 5.66 M/mcL (4.19-5.50); Red Cell Distribution Width 12.8 % (11.5-14.5); Segmented Neutrophils % 81.3 %; White Blood Count 12.6 K/mcL (4.3-11.1)
[2019-04-13] MEDS ORDERED: Ketorolac 15 MG/ML VIAL IVP ONE (07:28)
[2019-04-13 07:30] LABS: Albumin 4.8 g/dL (3.5-5.7); Albumin/Globulin Ratio 1.7 (1.1-2.2); Bilirubin,Direct 0.1 mg/dL (0.0-0.2); Bilirubin,Indirect 0.8 mg/dL (0.0-1.2); Bilirubin,Total 0.9 mg/dL (0.3-1.0); Calcium 9.7 mg/dL (8.6-10.3); Globulin 2.8 g/dL (2.4-3.5); Potassium 3.8 mEq/L (3.5-5.1); Total Protein 7.6 g/dL (6.4-8.9)
[2019-04-13 07:58] LABS: Bilirubin,Urine Small (Negative); Blood,Urine Large (Negative); Clarity,Urine Cloudy (Clear); Color,Urine Yellow (Yellow); Glucose,Urine (UA) Normal (Normal); Ketones,Urine Negative (Negative); Leukocyte Esterase,Urine Small (Negative); Nitrite,Urine Negative (Negative); PH,Urine 5.5 pH Units (5.0-8.0); Protein,Urine 30 mg/dL (Neg-Trace); Specific Gravity,Urine > 1.030 (1.010-1.025); Urobilinogen,Urine Normal (Normal)
[2019-04-13 08:03] LABS: Hyaline Casts,Urine Moderate per lpf (None-Few); RBC,Urine 30-50 per hpf (0-3); WBC,Urine 15-30 per hpf (0-3)
[2019-04-13 08:18] LABS: Bacteria,Urine Few per hpf (None-Few); Calcium Oxalate Crystals,Urine Present; Sperm,Urine Present
[2019-04-13 08:19] LABS: Squamous Epithelial Cell,Urine Moderate per lpf (None-Few)
[2019-04-13] MEDS ORDERED: Ketamine *HR* 17 MG in 0.9 % Sodium Chloride 100 ML IVPB ONE (08:42)
[2019-04-13] MEDS ORDERED: Morphine Sulfate 2 MG/ML SYRINGE IVP STA (08:42)
[2019-04-13] MEDS ORDERED: 0.9 % Sodium Chloride 1,000 ML IVC SCH (10:30)
[2019-04-13] MEDS ORDERED: Naloxone 0.4 MG/ML INJ IVP PRN (11:54)
[2019-04-13] MEDS ORDERED: *HR* OxyCODONE Immed Rel 5 MG TABLET PO PRN (11:54)
[2019-04-13] MEDS ORDERED: Hyoscyamine SL 0.125 MG TAB.SUBL SL PRN (11:54)
[2019-04-13] MEDS ORDERED: *HR* Belladonna Alkaloids/Opium 60 MG RECTAL SUPPOSITORY RC PRN (11:54)
[2019-04-13] MEDS ORDERED: Ondansetron 4 MG/2 ML VIAL IVP PRN (11:54)
--- NOTE | 2019-04-13 13:10 | Urology History & Physical ---
<Jennifer Robert N - Last Filed: 04/13/19 14:05> Date of Encounter: 04/13/19 Time of Encounter: 12:15 Assessment and Plan (1) Flank pain with history of urolithiasis Current Visit: Yes Status: Acute Patient is a 43-year-old male who presents the history of right flank pain. He is status post right ureteroscopic stone extraction from 04/08/2019. CT confirms definitive stone extraction. We will plan to continue with IV fluids and pain control and to reevaluate patient in the morning for possible ureteral stent. Order has been placed for patient to remain nothing by mouth after midnight. (2) Hydronephrosis, right Current Visit: Yes Status: Acute Patient is a 43-year-old male who presents the history of residual right hydronephrosis and periureteral edema following ureteroscopic stone extraction. There is no evidence of obstruction, and stone burden has been alleviated. We will continue with IV fluids and pain control. History of Present Illness Chief complaint: intractable right flank pain HPI: Mr. Story is a 43 year old male who presents 5 days status post right ureteroscopic stone extraction with Dr. Eugene. Patient reports continued right flank pain since surgery, but he reports this pain acutely worsened overnight. Patient presented to the emergency department where he underwent a CT of the abdomen and pelvis revealing some residual periureteral edema and hydronephrosis/hydroureter. Patient has undergone multiple stone extractions in the past and has previously experienced similar ureteral spasms. He admits to gross hematuria, urgency and frequency. He denies any fevers, chills, dysuria, or incontinence. Past Med Surg Social Fam HX - Past Medical History Medical history: asthma, hyperlipidemia, hypertension, kidney stones Additional medical history: sleep apnea with CPAP (9). OCD Psychiatric history: no psych history - Past Surgical History Surgical History: appendectomy, herniorrhaphy, other Additional surgical history: kidney stones removed. umbilical hernia. R shoulder - Social History Smoking Status: Never smoker Smokeless Tobacco Status: No Alcohol use: none Drug use: none - Family History Mother Hx Family Respiratory Disorders: Yes (COPD, sleep apnea.) Hx Family GI Disorders: Yes (Diverticulitis) Father Living Status: Still Living Hx Family Respiratory Disorders: Yes (Sleep Apnea) Hx Family GI Disorders: Yes (IBS) Medications and Allergies Atorvastatin [Lipitor] 80 mg PO HS 09/03/17 [History] Sertraline [Zoloft] 100 mg PO DAILY 08/22/18 [History] Amlodipine Besylate 10 mg PO DAILY #0 04/06/19 [History] Bupropion HCl [Wellbutrin Xl] 300 mg PO DAILY #0 04/06/19 [History] Losartan/Hydrochlorothiazide [Hyzaar 100-25 Tablet] 1 tab PO DAILY #0 04/06/19 [History] Docusate [Colace] 100 mg PO DAILY #14 capsule 04/11/19 [Rx] Hydrocortisone [Anusol-Hc] 30 gm RC DAILY #1 cream..g. 04/11/19 [Rx] Polyethylene Glycol 3350 [MiraLAX] 17 gm PO DAILY #30 powd.pack 04/11/19 [Rx] Pramoxine HCl [Proctofoam] 15 gm TP QID PRN #1 foam 04/11/19 [Rx] OxyCODONE/APAP 5/325 [Percocet 5/325 MG] 1 tab PO Q6HR PRN 04/13/19 [History] Allergy/AdvReac Type Severity Reaction Status Date / Time hydrocodone [From Lortab] Allergy Hallucinati Verified 04/06/19 22:04 ng Review of Systems - Constitutional no chills, no fatigue, no fever(s) - EENT Nose, mouth and throat: no dizziness, no headache(s) - Cardiovascular no chest pain, no diaphoresis, no dyspnea - Respiratory no cough, no dyspnea - Gastrointestinal no abdominal pain, no nausea, no vomiting - Genitourinary flank pain, hematuria, urinary frequency, no change in urinary stream, no difficulty urinating - Musculoskeletal back pain, no muscle weakness - Integumentary no erythema, no rash - Neurological no confusion, no syncope - Psychiatric no anxiety, no confusion - Hematologic/Lymphatic no easy bleeding, no easy bruising - Allergic/Immunologic no throat swelling, no wheezing Exam Initial Vital Signs Temp Pulse Resp BP Pulse Ox 97.6 F 100 18 145/93 97 04/13/19 06:06 04/13/19 06:06 04/13/19 06:06 04/13/19 06:06 04/13/19 06:06 - General physical appearance Present: well developed, no distress, no pain - Eyes Present: PERRL, normal ocular movement - ENT Present: normal nares, no hearing loss, no congestion - Neck Present: no masses, trachea midline, no lymphadenopathy - Respiratory Present: normal respiratory effort - Cardiovascular Cardiovascular exam IM: RRR - Abdomen Abdomen: Present: soft, non tender. Absent: distended - Genitourinary other (no cvat ) - Integumentary Present: no rash, no abnormal pigmentation - Neurologic Present: normal coordination - Musculoskeletal Present: other (normal posture) Urology Results - Labs 04/13/19 06:45 04/13/19 06:45 Abnormal lab results WBC 12.6 K/mcL (4.3-11.1) H 04/13/19 06:45 RBC 5.66 M/mcL (4.19-5.50) H 04/13/19 06:45 MCH 27.9 pg (28.0-33.3) L 04/13/19 06:45 MPV 9.0 fL (9.4-12.4) L 04/13/19 06:45 Neutrophils # 10.3 K/mcL (1.6-8.9) H 04/13/19 06:45 Sodium 134 mEq/L (136-145) L 04/13/19 06:45 Chloride 109 mEq/L (98-107) H 04/13/19 06:45 Carbon Dioxide 22 mEq/L (23-29) L 04/13/19 06:45 BUN 27 mg/dL (6-20) H 04/13/19 06:45 Creatinine 1.65 mg/dL (0.70-1.30) H 04/13/19 06:45 Est GFR ( Amer) 56 (> 60) L 04/13/19 06:45 Est GFR (Non-Af Amer) 46 (> 60) L 04/13/19 06:45 Glucose 159 mg/dL (70-105) H 04/13/19 06:45 Alkaline Phosphatase 117 Units/L (34-104) H 04/13/19 06:45 Amylase 21 Units/L (29-103) L 04/13/19 06:45 Urine Clarity Cloudy (Clear) A 04/13/19 07:40 Ur Specific [place] > 1.030 (1.010-1.025) H 04/13/19 07:40 Urine Protein 30 mg/dL (Neg-Trace) H 04/13/19 07:40 Urine Blood Large (Negative) H 04/13/19 07:40 Urine Bilirubin Small (Negative) H 04/13/19 07:40 Ur Leukocyte Esterase Small (Negative) H 04/13/19 07:40 Urine Microscopic RBC 30-50 per hpf (0-3) H 04/13/19 07:40 Urine Microscopic WBC 15-30 per hpf (0-3) H 04/13/19 07:40 Ur Squamous Epith Cells Moderate per lpf (None-Few) H 04/13/19 07:40 Hyaline Casts Moderate per lpf (None-Few) H 04/13/19 07:40 Ur Culture Indicated? YES (NO) A 04/13/19 07:40 Diabetes panel 04/13/19 Range/Units 06:45 Sodium 134 L (136-145) mEq/L Potassium 3.8 (3.5-5.1) mEq/L Chloride 109 H (98-107) mEq/L Carbon Dioxide 22 L (23-29) mEq/L BUN 27 H (6-20) mg/dL Creatinine 1.65 H (0.70-1.30) mg/dL Glucose 159 H (70-105) mg/dL Calcium 9.7 (8.6-10.3) mg/dL AST 16 (13-39) Units/L ALT 18 (7-52) Units/L Alkaline Phosphatase 117 H (34-104) Units/L Albumin 4.8 (3.5-5.7) g/dL Calcium panel 04/13/19 Range/Units 06:45 Calcium 9.7 (8.6-10.3) mg/dL Albumin 4.8 (3.5-5.7) g/dL Pituitary panel 04/13/19 Range/Units 06:45 Sodium 134 L (136-145) mEq/L Potassium 3.8 (3.5-5.1) mEq/L Chloride 109 H (98-107) mEq/L Carbon Dioxide 22 L (23-29) mEq/L BUN 27 H (6-20) mg/dL Creatinine 1.65 H (0.70-1.30) mg/dL Glucose 159 H (70-105) mg/dL Calcium 9.7 (8.6-10.3) mg/dL Adrenal panel 09/06/19 Range/Units 06:45 Sodium 134 L (136-145) mEq/L Potassium 3.8 (3.5-5.1) mEq/L Chloride 109 H (98-107) mEq/L Carbon Dioxide 22 L (23-29) mEq/L BUN 27 H (6-20) mg/dL Creatinine 1.65 H (0.70-1.30) mg/dL Glucose 159 H (70-105) mg/dL Calcium 9.7 (8.6-10.3) mg/dL Total Bilirubin 0.9 (0.3-1.0) mg/dL AST 16 (13-39) Units/L ALT 18 (7-52) Units/L Alkaline Phosphatase 117 H (34-104) Units/L Albumin 4.8 (3.5-5.7) g/dL All other labs normal. - Imaging CT scan - abdomen: report reviewed, image reviewed CT scan - pelvis: report reviewed, image reviewed <Raghav Alcantara - Last Filed: 04/13/19 17:55> Date of Encounter: 04/13/19 Assessment and Plan (1) Flank pain with history of urolithiasis Current Visit: Yes Status: Acute I personally reviewed the CT scan. I agree there is no evidence of ureteral calculi. I suspect he has developed ureteral spasm and swelling following the stone extraction. There is no stent in place at this time. He has acute renal insufficiency which is likely from dehydration and probably ureteral obstruction. On my evaluation the patient's pain was much improved. We will continue aggressive hydration overnight with pain control. Recheck renal fu nction in the morning. If symptoms and renal function have improved the patient will be discharged without need for surgical intervention. We discussed need for ureteral stent placement if there is no improvement. Patient was seen in conjunction with physician ssn/ssbn assistant navigator. Agree with her assessment and plan (2) Acute renal insufficiency Current Visit: No Status: Acute Hydration and recheck labs in the morning History of Present Illness HPI: Mr. Story is a 43 year old male Exam Initial Vital Signs Temp Pulse Resp BP Pulse Ox 97.6 F 100 18 145/93 97 04/13/19 06:06 04/13/19 06:06 04/13/19 06:06 04/13/19 06:06 04/13/19 06:06 Urology Results - Labs 04/13/19 06:45 04/13/19 06:45 Abnormal lab results WBC 12.6 K/mcL (4.3-11.1) H 04/13/19 06:45 RBC 5.66 M/mcL (4.19-5.50) H 04/13/19 06:45 MCH 27.9 pg (28.0-33.3) L 04/13/19 06:45 MPV 9.0 fL (9.4-12.4) L 04/13/19 06:45 Neutrophils # 10.3 K/mcL (1.6-8.9) H 04/13/19 06:45 Sodium 134 mEq/L (136-145) L 04/13/19 06:45 Chloride 109 mEq/L (98-107) H 04/13/19 06:45 Carbon Dioxide 22 mEq/L (23-29) L 04/13/19 06:45 BUN 27 mg/dL (6-20) H 04/13/19 06:45 Creatinine 1.65 mg/dL (0.70-1.30) H 04/13/19 06:45 Est GFR ( Amer) 56 (> 60) L 04/13/19 06:45 Est GFR (Non-Af Amer) 46 (> 60) L 04/13/19 06:45 Glucose 159 mg/dL (70-105) H 04/13/19 06:45 Alkaline Phosphatase 117 Units/L (34-104) H 04/13/19 06:45 Amylase 21 Units/L (29-103) L 04/13/19 06:45 Urine Clarity Cloudy (Clear) A 04/13/19 07:40 Ur Specific [place] > 1.030 (1.010-1.025) H 04/13/19 07:40 Urine Protein 30 mg/dL (Neg-Trace) H 04/13/19 07:40 Urine Blood Large (Negative) H 04/13/19 07:40 Urine Bilirubin Small (Negative) H 04/13/19 07:40 Ur Leukocyte Esterase Small (Negative) H 04/13/19 07:40 Urine Microscopic RBC 30-50 per hpf (0-3) H 04/13/19 07:40 Urine Microscopic WBC 15-30 per hpf (0-3) H 04/13/19 07:40 Ur Squamous Epith Cells Moderate per lpf (None-Few) H 04/13/19 07:40 Hyaline Casts Moderate per lpf (None-Few) H 04/13/19 07:40 Ur Culture Indicated? YES (NO) A 04/13/19 07:40 Diabetes panel 04/13/19 Range/Units 06:45 Sodium 134 L (136-145) mEq/L Potassium 3.8 (3.5-5.1) mEq/L Chloride 109 H (98-107) mEq/L Carbon Dioxide 22 L (23-29) mEq/L BUN 27 H (6-20) mg/dL Creatinine 1.65 H (0.70-1.30) mg/dL Glucose 159 H (70-105) mg/dL Calcium 9.7 (8.6-10.3) mg/dL AST 16 (13-39) Units/L ALT 18 (7-52) Units/L Alkaline Phosphatase 117 H (34-104) Units/L Albumin 4.8 (3.5-5.7) g/dL Calcium panel 04/13/19 Range/Units 06:45 Calcium 9.7 (8.6-10.3) mg/dL Albumin 4.8 (3.5-5.7) g/dL Pituitary panel 04/13/19 Range/Units 06:45 Sodium 134 L (136-145) mEq/L Potassium 3.8 (3.5-5.1) mEq/L Chloride 109 H (98-107) mEq/L Carbon Dioxide 22 L (23-29) mEq/L BUN 27 H (6-20) mg/dL Creatinine 1.65 H (0.70-1.30) mg/dL Glucose 159 H (70-105) mg/dL Calcium 9.7 (8.6-10.3) mg/dL Adrenal panel 04/13/19 Range/Units 06:45 Sodium 134 L (136-145) mEq/L Potassium 3.8 (3.5-5.1) mEq/L Chloride 109 H (98-107) mEq/L Carbon Dioxide 22 L (23-29) mEq/L BUN 27 H (6-20) mg/dL Creatinine 1.65 H (0.70-1.30) mg/dL Glucose 159 H (70-105) mg/dL Calcium 9.7 (8.6-10.3) mg/dL Total Bilirubin 0.9 (0.3-1.0) mg/dL AST 16 (13-39) Units/L ALT 18 (7-52) Units/L Alkaline Phosphatase 117 H (34-104) Units/L Albumin 4.8 (3.5-5.7) g/dL All other labs normal.
[2019-04-13] MEDS: Acetaminophen IV 1,000 MG/100 ML INFUS..BTL IVPB SCH ×2 (13:48→17:08)
[2019-04-13] MEDS: 0.9 % Sodium Chloride 1,000 ML IVC SCH (14:02)
[2019-04-14] MEDS: Acetaminophen IV 1,000 MG/100 ML INFUS..BTL IVPB SCH ×2 (00:43→06:00)
[2019-04-14] MEDS: 0.9 % Sodium Chloride 1,000 ML IVC SCH (02:12)
[2019-04-14 04:09] LABS: BUN/Creatinine Ratio 19 (6-26); Blood Urea Nitrogen 19 mg/dL (6-20); Calcium 8.8 mg/dL (8.6-10.3); Carbon Dioxide 24 mEq/L (23-29); Chloride 107 mEq/L (98-107); Glucose 98 mg/dL (70-105); Osmolality,Calculated 292 (280-300); Potassium 3.7 mEq/L (3.5-5.1); Sodium 140 mEq/L (136-145); eGFR For African Americans > 60 (> 60); eGFR For Non-African Americans > 60 (> 60)
[2019-04-14 07:18] VITALS: BP 136/86
--- NOTE | 2019-04-14 07:39 | Urology Progress Note ---
Date of Encounter: 04/14/19 Time of Encounter: 07:38 - Assessment and Plan (1) Flank pain with history of urolithiasis Current Visit: Yes Status: Resolved (2) Acute renal insufficiency Current Visit: No Status: Resolved Assessment and plan: Renal function has normalized. Pain has ceased. Plan to discharge. Progress Note Narrative: Patient states he feels better except for hemorrhoid discomfort. Flank pain and urinary issues have resolved Objective Initial Vital Signs Temp Pulse Resp BP Pulse Ox 97.6 F 100 18 145/93 97 04/13/19 06:06 04/13/19 06:06 04/13/19 06:06 04/13/19 06:06 04/13/19 06:06 - General physical appearance Present: well developed, no distress - Labs 04/13/19 06:45 04/14/19 03:15 Diabetes panel 04/14/19 Range/Units 03:15 Sodium 140 (136-145) mEq/L Potassium 3.7 (3.5-5.1) mEq/L Chloride 107 (98-107) mEq/L Carbon Dioxide 24 (23-29) mEq/L BUN 19 (6-20) mg/dL Creatinine 0.99 (0.70-1.30) mg/dL Glucose 98 (70-105) mg/dL Calcium 8.8 (8.6-10.3) mg/dL Calcium panel 04/14/19 Range/Units 03:15 Calcium 8.8 (8.6-10.3) mg/dL Pituitary panel 04/14/19 Range/Units 03:15 Sodium 140 (136-145) mEq/L Potassium 3.7 (3.5-5.1) mEq/L Chloride 107 (98-107) mEq/L Carbon Dioxide 24 (23-29) mEq/L BUN 19 (6-20) mg/dL Creatinine 0.99 (0.70-1.30) mg/dL Glucose 98 (70-105) mg/dL Calcium 8.8 (8.6-10.3) mg/dL Adrenal panel 04/14/19 Range/Units 03:15 Sodium 140 (136-145) mEq/L Potassium 3.7 (3.5-5.1) mEq/L Chloride 107 (98-107) mEq/L Carbon Dioxide 24 (23-29) mEq/L BUN 19 (6-20) mg/dL Creatinine 0.99 (0.70-1.30) mg/dL Glucose 98 (70-105) mg/dL Calcium 8.8 (8.6-10.3) mg/dL Consult Discharge Plan - Plan Referrals: Kory De Oliveira DO [Primary Care Provider] -
--- NOTE | 2019-04-14 07:42 | Discharge Summary ---
Orders not resulted at time of discharge: Pending orders 04/13/19 07:40 Culture,Urine [RM] Stat Date of Encounter: 04/14/19 Time of Encounter: 07:41 - Discharge Diagnosis (1) Flank pain with history of urolithiasis Priority: Primary Status: Resolved (2) Acute renal insufficiency Priority: Secondary Status: Resolved - Hospital Course Hospital course: Mr. Story is a 43 year old male admitted with acute renal insufficiency and dehydration after stone extraction earlier in the week. Renal function has completely normalized. Pain has ceased. Family was somewhat concerned about having recurrent dehydration. I have asked the patient to stay hydrated and minimize NSAID use. Follow-up with general surgery for hemorrhoids. Appointment is this week and - Time Spent with Patient Total time spent providing and/or coordinating discharge services: Labs on day of discharge: Labs from last 24 hours 04/14/19 04/13/19 04/13/19 03:15 07:40 06:45 Sodium 140 Potassium 3.7 Chloride 107 Carbon Dioxide 24 BUN 19 Creatinine 0.99 Est GFR ( Amer) > 60 Est GFR (Non-Af Amer) > 60 BUN/Creatinine Ratio 19 Glucose 98 Calculated Osmolality 292 Calcium 8.8 Lipase 11 Urine Color Yellow Urine Clarity Cloudy A Urine pH 5.5 Ur Specific [place] > 1.030 H Urine Protein 30 H Urine Glucose (UA) Normal Urine Ketones Negative Urine Blood Large H Urine Nitrite Negative Urine Bilirubin Small H Urine Urobilinogen Normal Ur Leukocyte Esterase Small H Urine Microscopic RBC 30-50 H Urine Microscopic WBC 15-30 H Ur Squamous Epith Cells Moderate H Calcium Oxalate Crystal Present Urine Bacteria Few Hyaline Casts Moderate H Urine Sperm Present Ur Culture Indicated? YES A Preliminary micro results at discharge 04/13/19 07:40 Urine Culture - Preliminary Urine,Clean Catch Culture is incubating. - Impressions ITS Impressions Abdomen/Pelvis CT 04/13/19 08:42 IMPRESSION: Previously described right-sided obstructing ureteral calculus is no longer visualized and has likely passed. However, there is residual hydronephrosis/hydroureter and periureteral edema. No additional nephrolithiasis. D/ / Yunior Low MD / Yunior Low MD Interpreting Provider: Yunior Low MD - Discharge Medications Prescriptions: No Action Atorvastatin [Lipitor] 80 mg PO HS Sertraline [Zoloft] 100 mg PO DAILY Amlodipine Besylate 10 mg PO DAILY #0 Losartan/Hydrochlorothiazide [Hyzaar 100-25 Tablet] 1 tab PO DAILY #0 Bupropion HCl [Wellbutrin Xl] 300 mg PO DAILY #0 Pramoxine HCl [Proctofoam] 15 gm TP QID PRN #1 foam PRN Reason: Pain Docusate [Colace] 100 mg PO DAILY #14 capsule Polyethylene Glycol 3350 [MiraLAX] 17 gm PO DAILY #30 powd.pack Hydrocortisone [Anusol-Hc] 30 gm RC DAILY #1 cream..g. OxyCODONE/APAP 5/325 [Percocet 5/325 MG] 1 tab PO Q6HR PRN PRN Reason: Pain Home Medications: Atorvastatin [Lipitor] 80 mg PO HS 04/10/17 [History] Sertraline [Zoloft] 100 mg PO DAILY 08/22/18 [History] Amlodipine Besylate 10 mg PO DAILY #0 04/06/19 [History] Bupropion HCl [Wellbutrin Xl] 300 mg PO DAILY #0 04/06/19 [History] Losartan/Hydrochlorothiazide [Hyzaar 100-25 Tablet] 1 tab PO DAILY #0 04/06/19 [History] Docusate [Colace] 100 mg PO DAILY #14 capsule 04/11/19 [Rx] Hydrocortisone [Anusol-Hc] 30 gm RC DAILY #1 cream..g. 04/11/19 [Rx] Polyethylene Glycol 3350 [MiraLAX] 17 gm PO DAILY #30 powd.pack 04/11/19 [Rx] Pramoxine HCl [Proctofoam] 15 gm TP QID PRN #1 foam 04/11/19 [Rx] OxyCODONE/APAP 5/325 [Percocet 5/325 MG] 1 tab PO Q6HR PRN 04/13/19 [History] Allergies/Adverse Reactions: Allergy/AdvReac Type Severity Reaction Status Date / Time hydrocodone [From Lortab] Allergy Hallucinati Verified 04/06/19 22:04 ng Date of admission: 04/13/19 10:26 Primary care physician: Kory De Oliveira DO Discharging clinician: Raghav Alcantara Anticipated date of discharge: 04/14/19 Exam Initial Vital Signs Temp Pulse Resp BP Pulse Ox 97.6 F 100 18 145/93 97 04/13/19 06:06 04/13/19 06:06 04/13/19 06:06 04/13/19 06:06 04/13/19 06:06 - General physical appearance Present: well developed, no distress - Patient Status Disposition: Home, Self-Care Condition: Good Functional capacity at discharge: independent ambulation Overall status at discharge: patient is progressing back to baseline - Discharge Instructions Follow Up With: Kory De Oliveira DO [Primary Care Provider] - Derek Eugene MD [Partnered Physician] - (Office will call to schedule appointment) Additional Instructions: Stay well hydrated. Use Tylenol for pain. Minimize ibuprofen use Avoid narcotic pain medication to prevent constipation which will worsen hemorrhoids. No other activity restrictions - Diet and Activity Activity: increase activity as tolerated Diet: advance to your usual diet
== END 2019-04-14 09:21 | disposition home or self-care (01) ==
LOC: 3BNU 05:46 → EMEROOARM 05:46 → 3BNU 11:00
PROVIDERS: ADMIT Urology; ATTEND Urology

== ENCOUNTER 2021-06-24 03:29 | Observation (INO) ==
[2021-06-24] MEDS ORDERED: Isovue-370 500 ML BOTTLE IVP ONE (03:45)
[2021-06-24] MEDS ORDERED: *HR* FentaNYL (PF) 100 MCG/2 ML VIAL IVP ONE (03:46)
[2021-06-24] MEDS ORDERED: Ondansetron 4 MG/2 ML VIAL IVP ONE (03:46)
[2021-06-24 04:02] LABS: Basophils % 0.3 %; Eosinophils # 0.1 K/mcL (0.0-0.6); Eosinophils % 0.9 %; Hematocrit 45.9 % (37.5-50.1); Hemoglobin 15.7 g/dL (12.9-16.9); Immature Granulocytes % 0.3 % (0-4); Lymphocytes # 1.2 K/mcL (0.6-4.6); Lymphocytes % 10.3 %; Mean Corpuscular HGB Conc 34.2 g/dL (31.6-35.5); Mean Corpuscular Hemoglobin 28.4 pg (28.0-33.3); Mean Platelet Volume 9.4 fL (9.4-12.4); Monocytes # 0.5 K/mcL (0.0-1.3); Monocytes % 4.7 %; Neutrophils # 9.6 K/mcL (1.6-8.9); Platelet Count 295 K/mcL (140-400); Red Blood Count 5.53 M/mcL (4.19-5.50); Red Cell Distribution Width 12.9 % (11.5-14.5); Segmented Neutrophils % 83.5 %; White Blood Count 11.5 K/mcL (4.3-11.1)
[2021-06-24 04:21] LABS: Alanine Aminotransferase 16 Units/L (7-52); Albumin 4.4 g/dL (3.5-5.7); Albumin/Globulin Ratio 1.6 (1.1-2.2); Alkaline Phosphatase 103 Units/L (34-104); Amylase 30 Units/L (29-103); Aspartate Amino Transferase 18 Units/L (13-39); BUN/Creatinine Ratio 16 (6-26); Bilirubin,Total 0.6 mg/dL (0.3-1.0); Blood Urea Nitrogen 17 mg/dL (6-20); Calcium 9.2 mg/dL (8.6-10.3); Carbon Dioxide 25 mEq/L (23-29); Chloride 104 mEq/L (98-107); Globulin 2.7 g/dL (2.4-3.5); Glucose 124 mg/dL (70-105); Lipase 30 Units/L (11-82); Osmolality,Calculated 285 (280-300); Sodium 136 mEq/L (136-145); Total Protein 7.1 g/dL (6.4-8.9); eGFR For African Americans > 60 (> 60); eGFR For Non-African Americans > 60 (> 60)
[2021-06-24 05:55] LABS: Bilirubin,Urine Negative (Negative); Blood,Urine Negative (Negative); Clarity,Urine Clear (Clear); Color,Urine Colorless (Yellow); Glucose,Urine (UA) Normal (Normal); Ketones,Urine Negative (Negative); Leukocyte Esterase,Urine Negative (Negative); Nitrite,Urine Negative (Negative); PH,Urine 6.5 pH Units (5.0-8.0); Protein,Urine Trace mg/dL (Neg-Trace); Specific Gravity,Urine > 1.030 (1.010-1.025); Urobilinogen,Urine Normal (Normal)
[2021-06-24 06:24] VITALS: PULSE 90
[2021-06-24] MEDS ORDERED: Naloxone 0.4 MG/ML INJ IVP PRN (06:39)
[2021-06-24] MEDS ORDERED: Ondansetron 4 MG/2 ML VIAL IVP PRN (06:39)
[2021-06-24 10:42] VITALS: BP 131/84; TEMP 97.6; O2SAT 96
[2021-06-24] MEDS ORDERED: GuaiFENesin Liq 200 MG/10 ML UDC PO SCH (12:00)
[2021-06-24 12:44] LABS: Basophils % 0.2 %; Eosinophils % 0.3 %; Hematocrit 44.2 % (37.5-50.1); Hemoglobin 14.8 g/dL (12.9-16.9); Immature Granulocytes % 0.3 % (0-4); Lymphocytes # 1.3 K/mcL (0.6-4.6); Lymphocytes % 14.7 %; Mean Corpuscular HGB Conc 33.5 g/dL (31.6-35.5); Mean Corpuscular Hemoglobin 27.9 pg (28.0-33.3); Mean Corpuscular Volume 83.2 fL (83.0-100.0); Mean Platelet Volume 9.3 fL (9.4-12.4); Monocytes # 0.4 K/mcL (0.0-1.3); Monocytes % 4.2 %; Platelet Count 277 K/mcL (140-400); Red Blood Count 5.31 M/mcL (4.19-5.50); Red Cell Distribution Width 12.8 % (11.5-14.5); Segmented Neutrophils % 80.3 %; White Blood Count 8.7 K/mcL (4.3-11.1)
== END 2021-06-24 14:00 | disposition home or self-care (01) ==
LOC: EMEROOARM 03:29 → 3NENU 03:29
PROVIDERS: ADMIT Internal Medicine; ATTEND Internal Medicine